=== PATIENT | female | born 1935 | race Caucasian/White ===

== ENCOUNTER 2021-10-09 13:22 | Inpatient (IN) ==
[2021-10-09] MEDS ORDERED: ACETAMINOPHEN 500 MG TABLET PO ONE (14:12)
--- NOTE | 2021-10-09 14:18 | Emergency Department Note ---
Fall HPI General Chief Complaint: Fall Stated Complaint: fall Time Seen by Provider: 10/09/21 13:44 Source: patient Mode of arrival: ambulatory History of Present Illness HPI Narrative: Patient is an 86-year-old lady who arrives emergency department by ambulance complaining of a fall. History is provided by the patient, review of her [facility] records and information provided by paramedics and her son. History is limited due to the patient's dementia. The patient was walking from her bed to a chair when her legs gave out and she fell, landing on her buttocks. She does not think she lost consciousness and does not think she struck her head. She has been ambulatory since the fall but has been having persistent pain over her tailbone and because of this [facility] staff sent her for further evaluation. She was noted to be hypoxemic upon arrival by her nurse and placed on supplemental oxygen via nasal cannula. Patient denies any shortness of breath cough or chest pain. She denies any recent fever or chills. Related Data Home Medications Medication Instructions Recorded Confirmed diltiazem HCl 360 mg capsule,24 360 mg PO QDAY 04/05/16 08/21/21 hr,extended release donepezil 5 mg tablet 5 mg PO QHS 04/05/16 08/21/21 levothyroxine 50 mcg tablet 50 mcg PO QDAY tab 04/05/16 08/21/21 (Synthroid) multivitamin,[id number]-[id number] 1 tab PO QDAY 04/06/16 08/21/21 (Complete Multivitamin) memantine 10 mg tablet (Namenda) 10 mg PO BID tab 05/02/17 08/21/21 acetaminophen 500 mg tablet 1,000 mg PO TID tab 12/31/18 08/21/21 lovastatin 40 mg tablet 20 mg PO QPM tab 09/09/19 08/21/21 loperamide 2 mg capsule 2 mg PO Q6H PRN 12/01/20 08/21/21 (Anti-Diarrheal (loperamide)) cephalexin 500 mg capsule 500 mg PO BID 07/19/21 08/21/21 Previous Rx's Medication Instructions Recorded ferrous sulfate 325 mg (65 mg 325 mg PO QDAY #30 cap 11/07/16 iron) capsule,extended release losartan 100 mg tablet 100 mg PO QDAY #90 tab 06/15/21 torsemide 20 mg tablet 40 mg PO BID #360 tab 07/19/21 Allergies Allergy/AdvReac Type Severity Reaction Status Date / Time alendronate sodium Allergy Severe Critical Verified 08/21/21 09:45 [From Fosamax] amlodipine [From Norvasc] Allergy Severe Critical Verified 08/21/21 09:45 ezetimibe [From Vytorin] Allergy Severe Critical Verified 08/21/21 09:45 fluvastatin [From Lescol] Allergy Severe Critical Verified 08/21/21 09:45 metoprolol [From Toprol XL] Allergy Severe Critical Verified 08/21/21 09:45 risedronate sodium Allergy Severe Critical Verified 08/21/21 09:45 [From Actonel] simvastatin [From Vytorin] Allergy Severe Critical Verified 08/21/21 09:45 Sulfa (Sulfonamide Allergy Severe Critical Verified 08/21/21 09:45 Antibiotics) lisinopril Allergy Intermediate Moderate Verified 08/21/21 09:45 Penicillins Allergy Mild Unknown Verified 08/21/21 09:45 Review of Systems ROS ROS Narrative: Narrative: Limitations: ROS unobtainable due to patients medical condition PFSH Narrative Patient History Narrative: Narrative: Medical/Surgical/Family History All Active Problems (Updated 10/09/21 @ 18:45 by Merlin Lara DO) Closed pelvic fracture (Acute) Acute kidney failure (Acute) 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 (Chronic) CKD (chronic kidney disease) stage 4, GFR 15-29 ml/min (Chronic) Stasis dermatitis of both legs (Chronic) Metabolic acidosis (Chronic) Localized edema due to fluid overload (Chronic) Vitamin D deficiency (Chronic) Renal artery stenosis (Chronic) Osteoarthrosis (Chronic) Deterioration in renal function (Chronic) Generalized osteoarthritis of multiple sites (Chronic) Personal history of malignant neoplasm of breast (Chronic) Chronic back pain (Chronic) Mitral regurgitation (Chronic) Impaired fasting glucose (Chronic) Encounter for long-term (current) use of other medications (Chronic) Alzheimers disease (Chronic) Hypertension (Chronic) Hyperlipidemia (Chronic) Hypothyroidism (Chronic) Osteopenia (Chronic) Medical History Alzheimers disease Chronic back pain Deterioration in renal function Encounter for long-term (current) use of other medications Generalized osteoarthritis of multiple sites Hyperlipidemia Hypertension Hypothyroidism Impaired fasting glucose Mitral regurgitation Osteoarthrosis Osteopenia Personal history of malignant neoplasm of breast Vitamin D deficiency Surgical History History of colonoscopy (06/10/08) History of hammer toe correction History of hernia repair (04/22/12) History of lumpectomy of left breast History of vein stripping Family History Mother Hypertension Sister Hypertension Social History Smoking Status: Former smoker Alcohol Intake Frequency: does not drink Substance Use: does not use Exam Narrative Narrative: I reviewed the vital signs. Gen -patient is awake and alert and in no acute distress. HEENT -head is atraumatic. There is no conjunctival pallor or scleral icterus. There is moderate midline cervical spine tenderness to palpation in the lower cervical spine without palpable bony deformity CV -S1-S2 regular rate and rhythm. Resp -breathing is nonlabored. Lungs are clear to auscultation bilaterally. There is no cyanosis. Derm -skin is warm and dry. MSK -present extremities are atraumatic. There is exquisite tenderness palpation over the central superior sacrum without palpable bony deformity. Pelvis is stable. Psych -patient has appropriate affect. Neuro -patient provides somewhat confused but contextually appropriate answers to questions. She does not know the year or her current place or situation. Patient moves all present extremities equally. Course Vital Signs Vital signs: Vital Signs Temperature 98.1 F 10/09/21 13:26 Pulse Rate 49 L 10/09/21 13:26 Respiratory Rate 16 10/09/21 13:26 Blood Pressure 124/48 10/09/21 13:26 Pulse Oximetry (%) 87 L 10/09/21 13:26 Temperature 98.1 F 10/09/21 13:26 Pulse Rate 51 L 10/09/21 18:31 Respiratory Rate 16 10/09/21 13:26 Blood Pressure 128/46 10/09/21 18:31 Pulse Oximetry (%) 96 10/09/21 18:31 [facility] MDM Narrative Medical decision making narrative: Patient presents with a fall. She is a very poor historian but did appear to exhibit some signs of increased work of breathing on arrival. During her emergency department stay, her pulse oximetry was also noted to be slightly low with values in the mid to high 80s on room air. Chest x-ray reveals pulmonary edema. Labs are remarkable for an elevated creatinine and slightly elevated potassium. BNP is elevated as well. Imaging does reveal a nondisplaced ileal fracture without any other traumatic findings. The patient was unable to ambulate due to pain on evaluation in the emergency department. Given this and her worsening kidney function I recommended she be admitted for treatment of likely decompensated heart failure and pain control for her fracture. She and her son are agreeable with the plan. Dr. Palma assumed care at the change of shift. He will follow up with the receiving facility to ensure appropriate disposition of the patient. Lab Data Lab results reviewed: Yes I reviewed the patient's lab results. Result diagrams: 10/09/21 16:50 Labs: Lab Results 10/09/21 10/09/21 10/09/21 Range/Units 16:50 16:50 16:50 WBC 10.6 (4.5-11.0) K/mcL RBC 4.45 (3.59-5.38) M/mcL Hgb 14.8 (11.2-15.7) g/dL Hct 46.0 H (34.1-44.9) % POC Hct 41 (36-48) % MCV 103.4 H (80.0-100.0) fL MCH 33.3 (26.0-34.0) pg MCHC 32.2 (31.0-36.0) g/dL RDW 13.8 (11.5-14.5) % Plt Count 212 (140-440) K/mcL MPV 10.9 H (7.4-10.4) fL Neut % (Auto) 76.2 (38.0-78.0) % Lymph % (Auto) 14.6 L (15.5-49.0) % [place] % (Auto) 8.4 (1.0-12.0) % Eos % (Auto) 0.4 (0.0-7.0) % Baso % (Auto) 0.4 (0.0-2.0) % Lymph # (Auto) 1.55 (1.50-4.80) K/mcL [place] # (Auto) 0.89 (0.10-0.90) K/mcL Eos # (Auto) 0.04 (0.00-0.70) K/mcL Baso # (Auto) 0.04 (0.00-0.30) K/mcL Absolute Neutrophils 8.08 H (1.80-8.00) K/mcL POC Sodium 140 (133-145) mEq/L POC Potassium 5.3 H (3.3-5.1) mEql/L POC Chloride 104 (96-108) mEq/L POC Total CO2 24 (22-30) mmol/L POC BUN 71 H (6-20) mg/dL POC Creatinine 3.3 H (0.6-1.2) mg/dL POC Glucose 106 H (70-105) mg/dL POC WB Ioniz Calcium 1.15 L (1.16-1.32) mmEq/L Troponin T 0.02 (<0.03) ng/mL NT-Pro-B Natriuret Pep 760.5 H (<450.0) pg/mL ED POC Tests ED POC Tests: NOREEN - Influenza A Negative NOREEN - Influenza B Negative NOREEN - SARS Antigen Negative EKG Data EKG #1: EKG attestation: Yes I reviewed and interpreted this EKG. EKG results narrative: EKG performed at 2:26 PM: Sinus rhythm, rate 44. Normal P wave and T wave morphology. There are Q waves present in the inferior leads. No ST segment deviation. Normal [place] QRS and QTc duration. There is no evidence of Brugada, Tsnhr-Xukudoaso-Tpdrm, HOCM or arrhythmogenic right ventricular dysplasia. Discharge Plan Patient/Caregiver Discharge Instructions Pt seen by ORGANIC CHEMISTRY PROFESSOR/PA only: No Clinical Impression: Closed pelvic fracture, Acute kidney failure Patient Disposition: Still a Patient Follow up with: Martina Henao ARNP [Primary Care Provider] - Prescriptions: No Action losartan 100 mg tablet 100 mg PO QDAY Qty: 90 4RF donepezil 5 mg tablet 5 mg PO QHS 0RF diltiazem HCl 360 mg capsule, extended release 360 mg PO QDAY 0RF levothyroxine [Synthroid] 50 mcg tablet 50 mcg PO QDAY 0RF Label Comments: take on an empty stomach memantine [Namenda] 10 mg tablet 10 mg PO BID 0RF lovastatin 40 mg tablet 20 mg PO QPM 0RF Label Comments: after supper multivitamin,[id number] [Complete Multivitamin] tablet 1 tab PO QDAY 0RF ferrous sulfate 325 mg (65 mg iron) capsule, extended release 325 mg PO QDAY Qty: 30 4RF acetaminophen 500 mg tablet 1,000 mg PO TID 0RF loperamide [Anti-Diarrheal (loperamide)] 2 mg capsule 2 mg PO Q6H PRN0RF cephalexin 500 mg capsule 500 mg PO BID 0RF torsemide 20 mg tablet 40 mg PO BID Qty: 360 3RF
--- NOTE | 2021-10-09 15:22 | Cat Scan Report ---
CLINICAL INFORMATION: Trauma-fall COMPARISON: None. TECHNIQUE: 2.5 mm helical slices were obtained in the skull base to vertex. Following reconstruction, axial reformatted images were reviewed at bone and parenchymal windows. The exam was performed using radiation dose optimization techniques including, but not limited to, automated exposure control, adjustment of the mA and/or kV according to patient size and use of iterative reconstruction technique. FINDINGS: The ventricles, sulci, fissures, and cisterns are symmetrically enlarged compatible with mild age-related atrophy. No extra-axial fluid collections are identified. Mild patchy chronic ischemic changes, in the deep cerebral white matter, are expected for age. Small remote cortical-based infarct in the right occipital lobe appreciated with a few remote lacunar infarcts in the basal ganglia and right thalamus. There is no hemorrhage, mass effect, or edema. Bone windows show severe left mastoiditis. IMPRESSION: Mild atrophy and moderate chronic ischemic changes in the deep cerebral white matter-expected for age. Small cortical-based infarct right occipital lobe with scattered remote lacunar infarcts in the basal ganglia and right thalamus. No intracerebral hemorrhage. Severe chronic left mastoiditis Interpreted and Authenticated by: Colton Turner 10/09/21
--- NOTE | 2021-10-09 15:25 | XRay Report ---
CLINICAL INFORMATION: Trauma-fall COMPARISON: None. TECHNIQUE: PA and Lateral views FINDINGS: The heart is mildly enlarged. Mediastinum is unremarkable. Pulmonary vessels are mildly distended and there is minimal interstitial edema. Minor bibasilar atelectasis noted. No effusions or evidence of pneumothorax. No fracture or other osseous abnormalities identified. IMPRESSION: No acute posttraumatic change. Mild CHF-consider diuretic trial Interpreted and Authenticated by: Colton Turner 10/09/21
--- NOTE | 2021-10-09 15:31 | Cat Scan Report ---
CLINICAL INFORMATION: Trauma-fall COMPARISON: None. TECHNIQUE: 0.625 mm helical slices were obtained from the skull base through the superior T2 end plate. Following reconstruction, 2.5 mm sagittal, coronal and axial reformations , with and without disc space angling, were processed. The exam was reviewed at bone and soft tissue windows. The exam was performed using radiation dose optimization techniques including, but not limited to, automated exposure control, adjustment of the mA and/or kV according to patient size and use of iterative reconstruction technique. FINDINGS: Sagittal and coronal reformatted images show the cervical spine is anatomically aligned. There is no fracture or other osseous abnormality. The cervical cord is normal in contour and caliber without focal lesion. 10 mm densely calcified nodule inferior lobe left thyroid lobe and peripherally calcified 8 mm nodule posterior left thyroid lobe appreciated. There is heavy calcific plaque in the right carotid bifurcation and moderate calcific plaque in the left carotid bifurcation. Severe centrilobular emphysema noted. At C2-3, minimal posterior marginal spurring at slightly effaces the thecal sac At C3-4, right uncovertebral spur results in mild right lateral recess narrowing. At C4-5, moderate broad disc spur complex results in mild central canal and mild left IV foraminal narrowing At C5-6, moderate broad disc spur complex results in moderate central canal and moderate bilateral IV foraminal narrowing. The C6-7 and C7-T1 disc levels are normal. IMPRESSION: 1. No fracture or other post traumatic change 2. Multilevel degeneration. 3. Severe centrilobular emphysema. 4. Heavily calcific plaque right carotid bifurcation. Moderate calcific plaque left carotid bifurcation. Suggest carotid Doppler Interpreted and Authenticated by: Colton Turner 10/09/21
--- NOTE | 2021-10-09 15:54 | Cat Scan Report ---
CLINICAL INFORMATION: Trauma COMPARISON: None. TECHNIQUE: 0.625 mm helical slices were obtained from the mid L4 through the subtrochanteric regions. Following reconstruction, 2.5 mm sagittal, coronal and axial reformations were processed. The exam was reviewed in bone and soft tissue windows. The exam was performed using radiation dose optimization techniques including, but not limited to, automated exposure control, adjustment of mA and/or kV according to patient size and use of iterative reconstruction technique. FINDINGS: A mildly comminuted, oblique fracture through the posterior left ilium is only minimally displaced. It communicates with articular surface of the left SI joint which maintained congruency. No other acute fractures identified. Malunified old fracture of the left superior and inferior pubic rami appreciated. There is mild degenerative change both SI and hip joints.At L3-4 moderate broad disc protrusion facet arthropathy result in moderate central canal bilateral lateral recess and mild left IV foraminal narrowing. At L5-S1 broad disc spur complex results in mild bilateral IV foraminal narrowing. Soft tissues show the urinary bladder is normal. Anteflexed normal appearing postmenopausal uterus m 6 cm. Region of both ovaries are normal. The visualized small and large bowel show only scattered sigmoid diverticuli. There is no free air, free fluid and no adenopathy. A small foraminal herniation of the mesenteric fat appreciated. IMPRESSION: 1. Acute oblique, comminuted, minimally displaced fracture of the posterior left ilium. 2. Sigmoid diverticulosis. 3. Small periumbilical hernia containing only mesenteric fat. 4. Degenerative change Interpreted and Authenticated by: Colton Turner 10/09/21
[2021-10-09] MEDS ORDERED: morphine 4 MG/ML VIAL IV ONE (16:40)
--- NOTE | 2021-10-09 16:42 | EKG ---
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 Measurements Intervals [place] Rate: 44 P: 6 NM: 196 QRS: -40 QRSD: 110 T: -59 QT: 472 QTc: 404 Interpretive Statements Sinus bradycardia, rate 44 bpm Abnormal R-wave progression, consider old posterior [place] Inferior infarct, age indeterminate Electronically Signed On 10-09-2021 16:42:10 PST by Colton Dos Santos M.D. [place] [place][id number]
[2021-10-09 17:03] LABS: POC Blood Urea Nitrogen 71 mg/dL (6-20); POC CO2 24 mmol/L (22-30); POC Calcium, Ionized 1.15 mmEq/L (1.16-1.32); POC Chloride 104 mEq/L (96-108); POC Creatinine 3.3 mg/dL (0.6-1.2); POC Glucose, Random 106 mg/dL (70-105); POC Hematocrit 41 % (36-48); POC Potassium 5.3 mEql/L (3.3-5.1); POC Sodium 140 mEq/L (133-145)
[2021-10-09 17:32] LABS: Basophils # (Auto) 0.04 K/mcL (0.00-0.30); Basophils % (Auto) 0.4 % (0.0-2.0); Eosinophils # (Auto) 0.04 K/mcL (0.00-0.70); Eosinophils % (Auto) 0.4 % (0.0-7.0); Hemoglobin 14.8 g/dL (11.2-15.7); Lymphocytes # (Auto) 1.55 K/mcL (1.50-4.80); Lymphocytes % (Auto) 14.6 % (15.5-49.0); Mean Cell Volume 103.4 fL (80.0-100.0); Mean Corpuscular HGB Conc 32.2 g/dL (31.0-36.0); Mean Platelet Volume 10.9 fL (7.4-10.4); Monocytes # (Auto) 0.89 K/mcL (0.10-0.90); Monocytes % (Auto) 8.4 % (1.0-12.0); Neutrophils % (Auto) 76.2 % (38.0-78.0); Platelet Count 212 K/mcL (140-440); RBC 4.45 M/mcL (3.59-5.38); Red Cell Distribution Width 13.8 % (11.5-14.5); WBC 10.6 K/mcL (4.5-11.0)
[2021-10-09 17:56] LABS: proBNP 760.5 pg/mL (<450.0)
[2021-10-09] MEDS ORDERED: FUROSEMIDE 100 MG/10 ML VIAL IV ONE (18:20)
--- NOTE | 2021-10-10 06:35 | Emergency Department Note ---
HPI General Chief complaint: Fall Stated complaint: fall Time Seen by Provider: 10/09/21 13:44 Source: patient Mode of arrival: ambulatory Limitations: no limitations History of Present Illness HPI Narrative: Narrative: This patient was signed out to me by Dr Lara at shift change yesterday. For full details please see his H&P. In brief she was found to have a fracture of the left ileum and CHF. Plan was for either admission or transfer, depending on bed availability. Unfortunately neither has been possible. There are no beds in the hospital here and we have been unable to secure an accepting hospital for her. Her case has been taken up by the [place] transfer center, and they may have located a bed in [place], [place]. They will call back at 7AM with further details. In the meantime I ordered a repeat BMP which may assist with her disposition. Related Data Home Medications Medication Instructions Recorded Confirmed diltiazem HCl 360 mg capsule,24 360 mg PO QDAY 04/05/16 08/21/21 hr,extended release donepezil 5 mg tablet 5 mg PO QHS 04/05/16 08/21/21 levothyroxine 50 mcg tablet 50 mcg PO QDAY tab 04/05/16 08/21/21 (Synthroid) multivitamin,[id number]-[id number] 1 tab PO QDAY 04/06/16 08/21/21 (Complete Multivitamin) memantine 10 mg tablet (Namenda) 10 mg PO BID tab 05/02/17 08/21/21 acetaminophen 500 mg tablet 1,000 mg PO TID tab 12/31/18 08/21/21 lovastatin 40 mg tablet 20 mg PO QPM tab 09/09/19 08/21/21 loperamide 2 mg capsule 2 mg PO Q6H PRN 12/01/20 08/21/21 (Anti-Diarrheal (loperamide)) cephalexin 500 mg capsule 500 mg PO BID 07/19/21 08/21/21 Previous Rx's Medication Instructions Recorded ferrous sulfate 325 mg (65 mg 325 mg PO QDAY #30 cap 11/07/16 iron) capsule,extended release losartan 100 mg tablet 100 mg PO QDAY #90 tab 03/28/21 torsemide 20 mg tablet 40 mg PO BID #360 tab 07/19/21 Allergies Allergy/AdvReac Type Severity Reaction Status Date / Time alendronate sodium Allergy Severe Critical Verified 08/21/21 09:45 [From Fosamax] amlodipine [From Norvasc] Allergy Severe Critical Verified 08/21/21 09:45 ezetimibe [From Vytorin] Allergy Severe Critical Verified 08/21/21 09:45 fluvastatin [From Lescol] Allergy Severe Critical Verified 08/21/21 09:45 metoprolol [From Toprol XL] Allergy Severe Critical Verified 08/21/21 09:45 risedronate sodium Allergy Severe Critical Verified 08/21/21 09:45 [From Actonel] simvastatin [From Vytorin] Allergy Severe Critical Verified 08/21/21 09:45 Sulfa (Sulfonamide Allergy Severe Critical Verified 08/21/21 09:45 Antibiotics) lisinopril Allergy Intermediate Moderate Verified 08/21/21 09:45 Penicillins Allergy Mild Unknown Verified 08/21/21 09:45 Review of Systems ROS ROS Narrative: Narrative: PFSH Narrative Patient History Narrative: Narrative: Medical/Surgical/Family History All Active Problems (Updated 10/09/21 @ 18:45 by Merlin Lara DO) Closed pelvic fracture (Acute) Acute kidney failure (Acute) 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 (Chronic) CKD (chronic kidney disease) stage 4, GFR 15-29 ml/min (Chronic) Stasis dermatitis of both legs (Chronic) Metabolic acidosis (Chronic) Localized edema due to fluid overload (Chronic) Vitamin D deficiency (Chronic) Renal artery stenosis (Chronic) Osteoarthrosis (Chronic) Deterioration in renal function (Chronic) Generalized osteoarthritis of multiple sites (Chronic) Personal history of malignant neoplasm of breast (Chronic) Chronic back pain (Chronic) Mitral regurgitation (Chronic) Impaired fasting glucose (Chronic) Encounter for long-term (current) use of other medications (Chronic) Alzheimers disease (Chronic) Hypertension (Chronic) Hyperlipidemia (Chronic) Hypothyroidism (Chronic) Osteopenia (Chronic) Medical History Alzheimers disease Chronic back pain Deterioration in renal function Encounter for long-term (current) use of other medications Generalized osteoarthritis of multiple sites Hyperlipidemia Hypertension Hypothyroidism Impaired fasting glucose Mitral regurgitation Osteoarthrosis Osteopenia Personal history of malignant neoplasm of breast Vitamin D deficiency Surgical History History of colonoscopy (06/10/08) History of hammer toe correction History of hernia repair (04/22/12) History of lumpectomy of left breast History of vein stripping Family History Mother Hypertension Sister Hypertension Social History Smoking Status: Former smoker Alcohol Intake Frequency: does not drink Substance Use: does not use Exam Narrative Narrative: Narrative: General Limitations: no limitations Course Vital Signs Vital signs: Vital Signs Temperature 98.1 F 10/09/21 13:26 Pulse Rate 49 L 10/09/21 13:26 Respiratory Rate 16 10/09/21 13:26 Blood Pressure 124/48 10/09/21 13:26 Pulse Oximetry (%) 87 L 10/09/21 13:26 Temperature 98.1 F 10/09/21 13:26 Pulse Rate 69 10/10/21 06:16 Respiratory Rate 16 10/09/21 13:26 Blood Pressure 116/94 10/10/21 06:16 Pulse Oximetry (%) 96 10/10/21 06:16 MDM MDM Narrative Medical decision making narrative: Narrative: Lab Data Result diagrams: 10/09/21 16:50 10/10/21 06:20 Labs: Lab Results 10/09/21 10/09/21 10/09/21 Range/Units 16:50 16:50 16:50 WBC 10.6 (4.5-11.0) K/mcL RBC 4.45 (3.59-5.38) M/mcL Hgb 14.8 (11.2-15.7) g/dL Hct 46.0 H (34.1-44.9) % POC Hct 41 (36-48) % MCV 103.4 H (80.0-100.0) fL MCH 33.3 (26.0-34.0) pg MCHC 32.2 (31.0-36.0) g/dL RDW 13.8 (11.5-14.5) % Plt Count 212 (140-440) K/mcL MPV 10.9 H (7.4-10.4) fL Neut % (Auto) 76.2 (38.0-78.0) % Lymph % (Auto) 14.6 L (15.5-49.0) % [place] % (Auto) 8.4 (1.0-12.0) % Eos % (Auto) 0.4 (0.0-7.0) % Baso % (Auto) 0.4 (0.0-2.0) % Lymph # (Auto) 1.55 (1.50-4.80) K/mcL [place] # (Auto) 0.89 (0.10-0.90) K/mcL Eos # (Auto) 0.04 (0.00-0.70) K/mcL Baso # (Auto) 0.04 (0.00-0.30) K/mcL Absolute Neutrophils 8.08 H (1.80-8.00) K/mcL POC Sodium 140 (133-145) mEq/L POC Potassium 5.3 H (3.3-5.1) mEql/L POC Chloride 104 (96-108) mEq/L POC Total CO2 24 (22-30) mmol/L POC BUN 71 H (6-20) mg/dL POC Creatinine 3.3 H (0.6-1.2) mg/dL POC Glucose 106 H (70-105) mg/dL POC WB Ioniz Calcium 1.15 L (1.16-1.32) mmEq/L Troponin T 0.02 (<0.03) ng/mL NT-Pro-B Natriuret Pep 760.5 H (<450.0) pg/mL ED POC Tests ED POC Tests: NOREEN - Influenza A Negative NOREEN - Influenza B Negative NOREEN - SARS Antigen Negative Discharge Plan Patient/Caregiver Discharge Instructions Pt seen by FINISH MENDER/PA only: No Clinical Impression: Closed pelvic fracture, Acute kidney failure Patient Disposition: Still a Patient Condition: Good Follow up with: Martina Henao ARNP [Primary Care Provider] - Prescriptions: No Action losartan 100 mg tablet 100 mg PO QDAY Qty: 90 4RF donepezil 5 mg tablet 5 mg PO QHS 0RF diltiazem HCl 360 mg capsule, extended release 360 mg PO QDAY 0RF levothyroxine [Synthroid] 50 mcg tablet 50 mcg PO QDAY 0RF Label Comments: take on an empty stomach memantine [Namenda] 10 mg tablet 10 mg PO BID 0RF lovastatin 40 mg tablet 20 mg PO QPM 0RF Label Comments: after supper multivitamin,[id number] [Complete Multivitamin] tablet 1 tab PO QDAY 0RF ferrous sulfate 325 mg (65 mg iron) capsule, extended release 325 mg PO QDAY Qty: 30 4RF acetaminophen 500 mg tablet 1,000 mg PO TID 0RF loperamide [Anti-Diarrheal (loperamide)] 2 mg capsule 2 mg PO Q6H PRN0RF cephalexin 500 mg capsule 500 mg PO BID 0RF torsemide 20 mg tablet 40 mg PO BID Qty: 360 3RF
[2021-10-10 07:51] LABS: Blood Urea Nitrogen 64 mg/dL (8-23); Calcium 8.8 mg/dL (8.6-10.4); Carbon Dioxide 23 mmol/L (22-30); Chloride 102 mmol/L (96-108); Glomerular Filtration Rate 19; Glucose 105 mg/dL (70-105)
--- NOTE | 2021-10-10 08:07 | Emergency Department Note ---
Course Reevaluation(s) Reevaluation #1: I assumed care from Dr. Palma at the change of shift. I evaluated the patient in person at 8 AM. She is resting comfortably and awakens to verbal stimuli. Oxygen saturation is 96% on room air. She says that she does not feel well but cannot further explain what is causing her discomfort. Renal function is improved on this morning's labs. We will continue to diurese and search for inpatient placement Time: 08:06 Time: 14:55 Reevaluation #3: The bed did become available at our hospital. I discussed the patient's history examination diagnostic findings with Dr. Mcdaniels who accepts admission. I discussed the plan with the patient and her son and they are agreeable. Vital Signs Vital signs: Vital Signs Temperature 98.1 F 10/09/21 13:26 Pulse Rate 49 L 10/09/21 13:26 Respiratory Rate 16 10/09/21 13:26 Blood Pressure 124/48 10/09/21 13:26 Pulse Oximetry (%) 87 L 10/09/21 13:26 Temperature 98.1 F 10/09/21 13:26 Pulse Rate 102 H 10/10/21 13:58 Respiratory Rate 16 10/09/21 13:26 Blood Pressure 112/53 10/10/21 13:31 Pulse Oximetry (%) 93 10/10/21 13:58 MDM MDM Narrative Medical decision making narrative: Narrative: Lab Data Result diagrams: 10/09/21 16:50 10/10/21 06:20 Labs: Lab Results 10/09/21 10/09/21 10/09/21 Range/Units 16:50 16:50 16:50 WBC 10.6 (4.5-11.0) K/mcL RBC 4.45 (3.59-5.38) M/mcL Hgb 14.8 (11.2-15.7) g/dL Hct 46.0 H (34.1-44.9) % POC Hct 41 (36-48) % MCV 103.4 H (80.0-100.0) fL MCH 33.3 (26.0-34.0) pg MCHC 32.2 (31.0-36.0) g/dL RDW 13.8 (11.5-14.5) % Plt Count 212 (140-440) K/mcL MPV 10.9 H (7.4-10.4) fL Neut % (Auto) 76.2 (38.0-78.0) % Lymph % (Auto) 14.6 L (15.5-49.0) % [place] % (Auto) 8.4 (1.0-12.0) % Eos % (Auto) 0.4 (0.0-7.0) % Baso % (Auto) 0.4 (0.0-2.0) % Lymph # (Auto) 1.55 (1.50-4.80) K/mcL [place] # (Auto) 0.89 (0.10-0.90) K/mcL Eos # (Auto) 0.04 (0.00-0.70) K/mcL Baso # (Auto) 0.04 (0.00-0.30) K/mcL Absolute Neutrophils 8.08 H (1.80-8.00) K/mcL POC Sodium 140 (133-145) mEq/L Sodium (133-145) mmol/L POC Potassium 5.3 H (3.3-5.1) mEql/L Potassium (3.3-5.1) mmol/L POC Chloride 104 (96-108) mEq/L Chloride (96-108) mmol/L Carbon Dioxide (22-30) mmol/L POC Total CO2 24 (22-30) mmol/L Anion Gap (8.0-16.0) POC BUN 71 H (6-20) mg/dL BUN (8-23) mg/dL Creatinine (0.6-1.1) mg/dL POC Creatinine 3.3 H (0.6-1.2) mg/dL GFR Calculation Glucose (70-105) mg/dL POC Glucose 106 H (70-105) mg/dL Calcium (8.6-10.4) mg/dL POC WB Ioniz Calcium 1.15 L (1.16-1.32) mmEq/L Troponin T 0.02 (<0.03) ng/mL NT-Pro-B Natriuret Pep 760.5 H (<450.0) pg/mL 10/10/21 Range/Units 06:20 WBC (4.5-11.0) K/mcL RBC (3.59-5.38) M/mcL Hgb (11.2-15.7) g/dL Hct (34.1-44.9) % POC Hct (36-48) % MCV (80.0-100.0) fL MCH (26.0-34.0) pg MCHC (31.0-36.0) g/dL RDW (11.5-14.5) % Plt Count (140-440) K/mcL MPV (7.4-10.4) fL Neut % (Auto) (38.0-78.0) % Lymph % (Auto) (15.5-49.0) % [place] % (Auto) (1.0-12.0) % Eos % (Auto) (0.0-7.0) % Baso % (Auto) (0.0-2.0) % Lymph # (Auto) (1.50-4.80) K/mcL [place] # (Auto) (0.10-0.90) K/mcL Eos # (Auto) (0.00-0.70) K/mcL Baso # (Auto) (0.00-0.30) K/mcL Absolute Neutrophils (1.80-8.00) K/mcL POC Sodium (133-145) mEq/L Sodium 141 (133-145) mmol/L POC Potassium (3.3-5.1) mEql/L Potassium 4.6 (3.3-5.1) mmol/L POC Chloride (96-108) mEq/L Chloride 102 (96-108) mmol/L Carbon Dioxide 23 (22-30) mmol/L POC Total CO2 (22-30) mmol/L Anion Gap 16.0 (8.0-16.0) POC BUN (6-20) mg/dL BUN 64 H (8-23) mg/dL Creatinine 2.2 H (0.6-1.1) mg/dL POC Creatinine (0.6-1.2) mg/dL GFR Calculation 19 Glucose 105 (70-105) mg/dL POC Glucose (70-105) mg/dL Calcium 8.8 (8.6-10.4) mg/dL POC WB Ioniz Calcium (1.16-1.32) mmEq/L Troponin T (<0.03) ng/mL NT-Pro-B Natriuret Pep (<450.0) pg/mL ED POC Tests ED POC Tests: NOREEN - Influenza A Negative NOREEN - Influenza B Negative NOREEN - SARS Antigen Negative Discharge Plan Patient/Caregiver Discharge Instructions Pt seen by COLOR[facility] DYER/PA only: No Clinical Impression: Closed pelvic fracture, Acute kidney failure Patient Disposition: Xfer As Inpt ([facility]) Condition: Good Follow up with: Martina Henao ARNP [Primary Care Provider] - Prescriptions: No Action losartan 100 mg tablet 100 mg PO QDAY Qty: 90 4RF donepezil 5 mg tablet 5 mg PO QHS 0RF diltiazem HCl 360 mg capsule, extended release 360 mg PO QDAY 0RF levothyroxine [Synthroid] 50 mcg tablet 50 mcg PO QDAY 0RF Label Comments: take on an empty stomach memantine [Namenda] 10 mg tablet 10 mg PO BID 0RF lovastatin 40 mg tablet 20 mg PO QPM 0RF Label Comments: after supper multivitamin,[id number] [Complete Multivitamin] tablet 1 tab PO QDAY 0RF ferrous sulfate 325 mg (65 mg iron) capsule, extended release 325 mg PO QDAY Qty: 30 4RF acetaminophen 500 mg tablet 1,000 mg PO TID 0RF loperamide [Anti-Diarrheal (loperamide)] 2 mg capsule 2 mg PO Q6H PRN (Reason: Diarrhea) 0RF torsemide 20 mg tablet 40 mg PO BID Qty: 360 3RF ciprofloxacin HCl 500 mg Tablet 500 mg PO BID 0RF tramadol 50 mg Tablet 50 mg PO Q6H PRN (Reason: Pain) 0RF triamcinolone acetonide 0.1 % Cream 1 applic TOPICAL BID 0RF Rx Instructions: apply to legs topically twice a day gabapentin 100 mg Capsule 100 mg PO BID 0RF
[2021-10-10] MEDS ORDERED: LOPERAMIDE 2 MG CAPSULE PO PRN (09:45)
[2021-10-10] MEDS ORDERED: traMADol (PP) 50 MG TABLET (#4) PO PRN (09:45)
[2021-10-10] MEDS ORDERED: FUROSEMIDE 40 MG/4 ML VIAL IV SCH (14:00)
[2021-10-10] MEDS ORDERED: FUROSEMIDE 40 MG TABLET PO SCH (15:00)
--- NOTE | 2021-10-10 15:18 | Internal Med History&Physical ---
HPI History of Present Illness Patient information: Note initiated : 10/10/21 at 3:06 pm Service Date, if different from initiated Date: [] Patient: Yamileth Roach 86 y/o F admitted on for fall. Chief Complaint: [] Chief complaint: fall History of present illness: Ms. Roach is a 86 year old F history of Alzheimer's Dementia, essential HTN, mixed dyslipidemia, CKD IV, hypothyroidism, p/w fall. She is a assisted living f rust/memory care facility resident. Yesterday when she was trying to get up from bed she fell onto the ground. She denies any chest pain or palpitation. She denies any headache. She denies any LOC. She was sent to our ER by EMS on 10/08 for further evaluation. She is c/o aching pain of her left hip, 5/10, non radiating, constant at rest, and 10/10 when she tries to move her left leg. She was also being placed on 4L/min supplemental oxygen initially, currently at 2L/min. Labs significant for elevated serum Cr level initially at 3.3 with a baseline of 1.5. BNP 760. CXR showing signs of mild CHF. Head CT w/o contrast no signs of acute intracranial pathologies. CT pelvis showing acute oblique, comminuted, minimally displaced fracture of the posterior left ilium. Constitutional Constitutional: Absent chills, excessive sweating, fatigue, fever(s) or weakness EENT Eyes: Absent blurry vision, change in vision, loss of vision or other visual disturbances Ears: Absent decreased hearing or tinnitus Nose, mouth and throat: Absent abnormal hearing, dry mouth, headache(s), nasal congestion or sore throat Cardiovascular Cardiovascular: Absent chest pain, chest pain at rest, edema, irregular heart rhythm or palpatations Respiratory Respiratory: Absent cough, dyspnea or wheezing Gastrointestinal Gastrointestinal: Absent abdominal pain, constipation, diarrhea, nausea or vomiting Musculoskeletal Musculoskeletal: Absent back pain, deformity, limited range of motion, muscle cramps, muscle weakness or numbness Additional comments: left hip pain Integumentary Integumentary: Absent lesions, rash or wounds Neurological Neurological: Absent focal weakness, headache(s) or numbness Psychiatric Psychiatric: Absent anxiety, depression or hallucinations PFSH PFSH All Active Problems (Updated 10/10/21 @ 15:14 by Kevin Mcdaniels MD) CHF (congestive heart failure), NYHA class III (Acute) Alzheimer's dementia (Acute) Stage 2 acute kidney injury (Acute) Closed pelvic fracture (Acute) Acute kidney failure (Acute) 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 (Chronic) CKD (chronic kidney disease) stage 4, GFR 15-29 ml/min (Chronic) Stasis dermatitis of both legs (Chronic) Metabolic acidosis (Chronic) Localized edema due to fluid overload (Chronic) Vitamin D deficiency (Chronic) Renal artery stenosis (Chronic) Osteoarthrosis (Chronic) Deterioration in renal function (Chronic) Generalized osteoarthritis of multiple sites (Chronic) Personal history of malignant neoplasm of breast (Chronic) Chronic back pain (Chronic) Mitral regurgitation (Chronic) Impaired fasting glucose (Chronic) Encounter for long-term (current) use of other medications (Chronic) Alzheimers disease (Chronic) Hypertension (Chronic) Hyperlipidemia (Chronic) Hypothyroidism (Chronic) Osteopenia (Chronic) Medical History Alzheimers disease Chronic back pain Deterioration in renal function Encounter for long-term (current) use of other medications Generalized osteoarthritis of multiple sites Hyperlipidemia Hypertension Hypothyroidism Impaired fasting glucose Mitral regurgitation Osteoarthrosis Osteopenia Personal history of malignant neoplasm of breast Vitamin D deficiency Surgical History History of colonoscopy (06/10/08) History of hammer toe correction History of hernia repair (04/22/12) History of lumpectomy of left breast History of vein stripping Family History Mother Hypertension Sister Hypertension Social History marital status: frequency: 5-6 times per week alcohol intake frequency: does not drink substance use type: does not use MEDS/ALLERGIES Home Medications and Allergies Home Medications Medication Instructions Recorded Confirmed Type diltiazem HCl 360 mg capsule,24 360 mg PO QDAY 04/05/16 10/10/21 History hr,extended release donepezil 5 mg tablet 5 mg PO QHS 04/05/16 10/10/21 History levothyroxine 50 mcg tablet 50 mcg PO QDAY tab 04/05/16 10/10/21 History (Synthroid) multivitamin,[id number] 1 tab PO QDAY 04/06/16 10/10/21 History (Complete Multivitamin) ferrous sulfate 325 mg (65 mg 325 mg PO QDAY #30 cap 11/07/16 10/10/21 Rx iron) capsule,extended release memantine 10 mg tablet (Namenda) 10 mg PO BID tab 05/02/17 10/10/21 History acetaminophen 500 mg tablet 1,000 mg PO TID tab 12/31/18 10/10/21 History lovastatin 40 mg tablet 20 mg PO QPM tab 09/09/19 10/10/21 History loperamide 2 mg capsule 2 mg PO Q6H PRN 12/01/20 10/10/21 History (Anti-Diarrheal (loperamide)) losartan 100 mg tablet 100 mg PO QDAY #90 tab 03/28/21 10/10/21 Rx torsemide 20 mg tablet 40 mg PO BID #360 tab 07/19/21 10/10/21 Rx ciprofloxacin HCl 500 mg tablet 500 mg PO BID 10/10/21 10/10/21 History gabapentin 100 mg capsule 100 mg PO BID 10/10/21 10/10/21 History tramadol 50 mg tablet 50 mg PO Q6H PRN 10/10/21 10/10/21 History triamcinolone acetonide 0.1 % 1 applic TOPICAL BID 10/10/21 10/10/21 History topical cream Allergies Allergy/AdvReac Type Severity Reaction Status Date / Time alendronate sodium Allergy Severe Critical Verified 08/21/21 09:45 [From Fosamax] amlodipine [From Norvasc] Allergy Severe Critical Verified 08/21/21 09:45 ezetimibe [From Vytorin] Allergy Severe Critical Verified 08/21/21 09:45 fluvastatin [From Lescol] Allergy Severe Critical Verified 08/21/21 09:45 metoprolol [From Toprol XL] Allergy Severe Critical Verified 08/21/21 09:45 risedronate sodium Allergy Severe Critical Verified 08/21/21 09:45 [From Actonel] simvastatin [From Vytorin] Allergy Severe Critical Verified 08/21/21 09:45 Sulfa (Sulfonamide Allergy Severe Critical Verified 08/21/21 09:45 Antibiotics) lisinopril Allergy Intermediate Moderate Verified 08/21/21 09:45 Penicillins Allergy Mild Unknown Verified 08/21/21 09:45 EXAM Constitutional Vitals: Temp Pulse Resp BP Pulse Ox 36.7 C 102 H 16 112/53 93 10/09/21 13:26 10/10/21 13:58 10/09/21 13:26 10/10/21 13:31 10/10/21 13:58 General appearance: cooperative, disheveled and no acute distress Head Head exam: Present atraumatic and normocephalic Eye Eye exam: Present EOMI and PERRL ENT ENT exam: Present mucous membranes moist, normal exam and normal external ear exam Additional comments: Nasal cannula in place Neck Neck exam: Present normal inspection; Absent lymphadenopathy, tenderness or thyromegaly Respiratory Respiratory exam: Present decreased breath sounds; Absent accessory muscle use, respiratory distress or wheezes Cardiovascular Cardiovascular exam: Present normal rate and rhythm; Absent JVD GI/Abdominal GI/Abdominal exam: Present normal bowel sounds and soft; Absent organomegaly or tenderness Extremities Exam Extremities exam: Present normal capillary refill, normal inspection and tende rness; Absent full ROM Additional comments: left lateral hip tenderness to palpation Neurological Exam Neurological exam: Present alert, CN II-XII intact and oriented X3; Absent motor sensory deficit Psychiatric Psychiatric exam: Present normal affect and normal mood; Absent anxious or depressed Skin Skin exam: Present dry and intact DATA Data Completed and Pending Labs: Labs from last 24 hours 10/10/21 10/09/21 10/09/21 06:20 16:50 16:50 WBC RBC Hgb Hct POC Hct 41 MCV MCH MCHC RDW Plt Count MPV Neut % (Auto) Lymph % (Auto) [place] % (Auto) Eos % (Auto) Baso % (Auto) Lymph # (Auto) [place] # (Auto) Eos # (Auto) Baso # (Auto) Absolute Neutrophils POC Sodium 140 Sodium 141 POC Potassium 5.3 H Potassium 4.6 POC Chloride 104 Chloride 102 Carbon Dioxide 23 POC Total CO2 24 Anion Gap 16.0 POC BUN 71 H BUN 64 H Creatinine 2.2 H POC Creatinine 3.3 H GFR Calculation 19 Glucose 105 POC Glucose 106 H Calcium 8.8 POC WB Ioniz Calcium 1.15 L Troponin T 0.02 NT-Pro-B Natriuret Pep 760.5 H 10/09/21 16:50 WBC 10.6 RBC 4.45 Hgb 14.8 Hct 46.0 H POC Hct MCV 103.4 H MCH 33.3 MCHC 32.2 RDW 13.8 Plt Count 212 MPV 10.9 H Neut % (Auto) 76.2 Lymph % (Auto) 14.6 L [place] % (Auto) 8.4 Eos % (Auto) 0.4 Baso % (Auto) 0.4 Lymph # (Auto) 1.55 [place] # (Auto) 0.89 Eos # (Auto) 0.04 Baso # (Auto) 0.04 Absolute Neutrophils 8.08 H POC Sodium Sodium POC Potassium Potassium POC Chloride Chloride Carbon Dioxide POC Total CO2 Anion Gap POC BUN BUN Creatinine POC Creatinine GFR Calculation Glucose POC Glucose Calcium POC WB Ioniz Calcium Troponin T NT-Pro-B Natriuret Pep A/P Assessment and plan (1) Closed pelvic fracture: Status: Acute (2) Stage 2 acute kidney injury: Status: Acute (3) CKD (chronic kidney disease) stage 4, GFR 15-29 ml/min: Status: Chronic (4) 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: Status: Chronic (5) Hyperlipidemia: Status: Chronic (6) Hypothyroidism: Status: Chronic (7) Alzheimer's dementia: Status: Acute (8) CHF (congestive heart failure), NYHA class III: Status: Acute Narrative A/P Narrative: Assessment and Plans: 1. Closed, minimally displaced, left posterior ilial fracture: Inpatient med surg Tramadol PRN mild pain Oxycodone PRN moderate pain Morphine IV PRN severe pain Bedrest Physical therapy Occupational therapy project management manager consult for placement planning 2. CHF: Not previously diagnosed Intake and output Daily weigh 2L/day fluid restriction Supplemental oxygen therapy titrate to achieve spo2>=92% s/p IV Lasix given in the ED Coreg Hold Losartan for now given PATT Torsemide 3. Stage 2 acute kidney injury in the context of CKD IV: Avoid nephrotoxic agents Hold Losartan for now given PATT Saline lock CMP in the morning to trend kidney functions 4. Essential HTN: Diltiazem Coreg Hold Losartan for now given PATT Torsemide Hydralazine IV PRN SBP>=180 and/or DBP>=110mmHg 5. Mixed dyslipidemia: Continue statin therapy 6. Alzheimer's Dementia: Donepezil Memantine 7. Hypothyroidism: Continue thyroid replacement therapy GI ppx: not currently indicated DVT ppx: Heparin Code status: Full Prognosis: guarded Disposition: inpatient med sug telemetry Time Spent With Patient Time: Total time spent is greater than 50% in coordination of care (as documented) at patient's floor/unit and/or counseling patient: Total time spent with greater than 50% in coordination of care (as documented) at patient's floor/unit and/or counseling patient:: Greater than 35 minutes
[2021-10-10] MEDS: ACETAMINOPHEN 500 MG TABLET PO SCH ×2 (16:03→20:49)
[2021-10-10] MEDS ORDERED: traZODone HCL 50 MG TABLET PO PRN (16:49)
[2021-10-10] MEDS ORDERED: hydrALAZINE 20 MG/ML VIAL IV PRN (16:49)
[2021-10-10] MEDS ORDERED: ACETAMINOPHEN 325 MG TABLET PO PRN (16:49)
[2021-10-10] MEDS ORDERED: ONDANSETRON 4 MG/2 ML VIAL IV PRN (16:49)
[2021-10-10] MEDS: CARVEDILOL 3.125 MG TABLET PO SCH (17:55)
[2021-10-10] MEDS: GABAPENTIN 100 MG CAPSULE PO SCH (20:48)
[2021-10-10] MEDS: HEPARIN 5,000 UNIT/ML VIAL SQ SCH (20:48)
[2021-10-10] MEDS: MEMANTINE 10 MG TABLET PO SCH (20:48)
[2021-10-10] MEDS: TORSEMIDE 10 MG TABLET PO SCH (20:49)
[2021-10-10] MEDS: SENNOSIDES 1 TABLET PO SCH (20:49)
[2021-10-10] MEDS: DOCUSATE SODIUM 100 MG CAPSULE PO SCH (20:49)
[2021-10-10] MEDS: 0.9 % SODIUM CHLORIDE 10 ML SYRINGE IV SCH (20:50)
[2021-10-10] MEDS: TRIAMCINOLONE CREAM 0.1% 15G 1 DOSE TUBE TOPICAL SCH (20:50)
[2021-10-10] MEDS ORDERED: LOVASTATIN 40 MG PO SCH (21:00)
[2021-10-10] MEDS: DONEPEZIL 5 MG TABLET PO SCH (22:00)
[2021-10-11] MEDS: morphine 4 MG/ML VIAL IV PRN (02:45)
[2021-10-11] MEDS: 0.9 % SODIUM CHLORIDE 10 ML SYRINGE IV SCH ×3 (05:40→21:41)
[2021-10-11] MEDS ORDERED: traMADol 50 MG TABLET PO PRN (07:30)
[2021-10-11 08:05] LABS: ALT/SGPT 17 U/L (<40); AST/SGOT 21 U/L (<32); Albumin 3.5 gm/dL (3.2-5.2); Albumin/Globulin Ratio 0.8 (1.0-2.3); Alkaline Phosphatase 83 U/L (39-117); Bilirubin,Total 0.4 mg/dL (0.1-1.0); Blood Urea Nitrogen 57 mg/dL (8-23); Calcium 9.3 mg/dL (8.6-10.4); Carbon Dioxide 24 mmol/L (22-30); Chloride 104 mmol/L (96-108); Globulin 4.2 gm/dL (2.2-3.7); Glomerular Filtration Rate 31; Glucose 108 mg/dL (70-105); Phosphorous 3.9 mg/dL (2.5-4.5)
[2021-10-11] MEDS: ACETAMINOPHEN 500 MG TABLET PO SCH ×3 (08:21→21:35)
[2021-10-11] MEDS: TORSEMIDE 10 MG TABLET PO SCH ×2 (08:21→21:35)
[2021-10-11] MEDS: CARVEDILOL 3.125 MG TABLET PO SCH (08:22)
[2021-10-11] MEDS: LEVOTHYROXINE 50 MCG TABLET PO SCH (08:22)
[2021-10-11] MEDS: GABAPENTIN 100 MG CAPSULE PO SCH ×2 (08:22→21:40)
[2021-10-11] MEDS: MEMANTINE 10 MG TABLET PO SCH ×2 (08:22→21:36)
[2021-10-11] MEDS: MULTIVIT,THER IRON,CA,FA & MIN 1 TABLET PO SCH (08:22)
[2021-10-11] MEDS: DOCUSATE SODIUM 100 MG CAPSULE PO SCH ×2 (08:22→21:02)
[2021-10-11] MEDS: DILTIAZEM 180 MG CAP.XL.24H PO SCH (08:22)
[2021-10-11] MEDS: FERROUS SULFATE 325 MG TABLET PO SCH (08:22)
[2021-10-11] MEDS: HEPARIN 5,000 UNIT/ML VIAL SQ SCH ×2 (08:22→21:36)
[2021-10-11] MEDS: TRIAMCINOLONE CREAM 0.1% 15G 1 DOSE TUBE TOPICAL SCH ×2 (08:23→21:02)
[2021-10-11] MEDS ORDERED: LOSARTAN 50 MG TABLET PO SCH (09:00)
[2021-10-11] MEDS ORDERED: NON FORMULARY MEDICATION 1 DOSE MISCELL (Losartan 100 mg tablet) PO SCH (09:00)
--- NOTE | 2021-10-11 09:11 | Internal Med Progress Note ---
SUBJECTIVE Subjective Patient information: Note initiated : 10/11/21 at 9:07 am Service Date, if different from initiated Date: [] Patient: Yamileth Roach 86 y/o F admitted on 10/10/21 for fall. Chief Complaint: [] Interval history: Ms. Roach is a 86 year old F history of Alzheimer's Dementia, essential HTN, mixed dyslipidemia, CKD IV, hypothyroidism, p/w fall. She is a assisted living facility/memory care facility resident. Yesterday when she was trying to get up from bed she fell onto the ground. She denies any chest pain or palpitation. She denies any headache. She denies any LOC. She was sent to our ER by EMS on 10/08 for further evaluation. She is c/o aching pain of her left hip, 5/10, non radiating, constant at rest, and 10/10 when she tries to move her left leg. She was also being placed on 4L/min supplemental oxygen initially, currently at 2L/min. Labs significant for elevated serum Cr level initially at 3.3 with a baseline of 1.5. BNP 760. CXR showing signs of mild CHF. Head CT w/o contrast no signs of acute intracranial pathologies. CT pelvis showing acute oblique, comminuted, minimally displaced fracture of the posterior left ilium. 10/11: On 2L/min oxygen. c/o 5/10 pain of her left hip. Denies SOB or chest pain. D enies fever or chills or sweating. Pending physical therapy occupational therapy evaluation. Constitutional Vitals: Vital Signs Temp Pulse Resp BP Pulse Ox 36.8 C 92 H 22 132/59 90 10/11/21 08:00 10/11/21 08:00 10/11/21 08:00 10/11/21 08:00 10/11/21 08:00 Period Temp Pulse Resp BP Sys/Flores Pulse Ox Last 24 Hr 36.3 C-36.9 C 79-112 18-22 103-230/44-183 88-97 Intake and Output 10/10/21 10/11/21 10/11/21 21:59 05:59 13:59 Intake Total 100 Output Total 475 350 Balance -475 -250 Weight 66.814 kg Intake & Output: Intake & Output 10/10/21 10/11/21 10/11/21 21:59 05:59 13:59 Intake Total 100 Output Total 475 350 Balance -475 -250 Weight 66.814 kg Intake: Oral 100 Output: Void Amount 350 Urine/Stool Mix 475 Other: Urine Appearance Clear Urine Color Straw Urine Odor Normal Stool Size Small Stool Color Brown Brown Black Stool Consistency Liquid Soft Watery Formed Loose # of times incontinent of 1 Bowels General appearance: average body habitus, cooperative and no acute distress Head Head exam: Present atraumatic and normal inspection Eye Eye exam: Present normal appearance ENT ENT exam: Present mucous membranes moist, normal exam and normal external ear exam Additional comments: Nasal cannula in place Neck Neck exam: Present normal inspection Respiratory Respiratory exam: Present normal respiratory exam Cardiovascular Cardiovascular exam: Present normal rate and rhythm GI/Abdominal GI/Abdominal exam: Present normal bowel sounds Extremities Exam Extremities exam: Present tenderness; Absent full ROM Back Exam Back exam: Present normal inspection Neurological Exam Neurological exam: Present alert and oriented X3 Skin Skin exam: Present intact and warm OBJ DATA Labs CBC & Chem 7: 10/09/21 16:50 10/11/21 06:34 Labs: Abnormal Lab Results 10/11/21 10/10/21 10/09/21 06:34 06:20 16:50 Hct MCV MPV Lymph % (Auto) Absolute Neutrophils POC Potassium 5.3 H Anion Gap 17.0 H POC BUN 71 H BUN 57 H 64 H Creatinine 1.5 H 2.2 H POC Creatinine 3.3 H Glucose 108 H POC Glucose 106 H POC WB Ioniz Calcium 1.15 L NT-Pro-B Natriuret Pep 760.5 H Globulin 4.2 H Albumin/Globulin Ratio 0.8 L 10/09/21 16:50 Hct 46.0 H MCV 103.4 H MPV 10.9 H Lymph % (Auto) 14.6 L Absolute Neutrophils 8.08 H POC Potassium Anion Gap POC BUN BUN Creatinine POC Creatinine Glucose POC Glucose POC WB Ioniz Calcium NT-Pro-B Natriuret Pep Globulin Albumin/Globulin Ratio Meds: Medications Acetaminophen (Acetaminophen 500 Mg Tablet) 1,000 mg PO TID [facility]; Protocol Last Admin: 10/11/21 08:21 Dose: 1,000 mg Documented by: Acetaminophen (Acetaminophen 325 Mg Tablet) 650 mg PO Q6HP PRN; Protocol PRN Reason: Per Pain Protocol/Fever > 101 Albuterol/Ipratropium (Ipratropium/Albuterol 3 Ml Ampul.Neb) 3 ml NEB Q4HRT PRN PRN Reason: Wheezing Carvedilol ([facility] 3.125 Mg [facility]t) [facility] Last Admin: 10/11/21 08:22 Dose: 3.125 mg Documented by: Diltiazem HCl (Diltiazem 180 Mg Cap.Xl.24h) 360 mg PO DAILY [facility] Last Admin: 10/11/21 08:22 Dose: 360 mg Documented by: Docusate Sodium (Docusate Sodium 100 Mg Capsule) 100 mg PO BID [facility] Last Admin: 10/11/21 08:22 Dose: 100 mg Documented by: Donepezil HCl (Donepezil 5 Mg Tablet) 5 mg PO QHS [facility] Last Admin: 10/10/21 22:00 Dose: 5 mg Documented by: Ferrous Sulfate (Ferrous Sulfate 325 Mg Tablet) 325 mg PO [facility] Last Admin: 10/11/21 08:22 Dose: 325 mg Documented by: Gabapentin (Gabapentin 100 Mg Capsule) 100 mg PO BID [facility] Last Admin: 10/11/21 08:22 Dose: 100 mg Documented by: Heparin Sodium (Porcine) (Heparin 5,000 Unit/Ml Vial) 5,000 unit SQ Q12 [facility] Last Admin: 10/11/21 08:22 Dose: 5,000 unit Documented by: Hydralazine HCl (Hydralazine 20 Mg/Ml Vial) 10 mg IV Q4-6HP PRN PRN Reason: Hypertension Iron Carb/Multivit/[place]/Folic Acid (Multivit,Ther Iron,Ca,Fa & Min 1 Tablet) 1 tab PO DAILY [facility] Last Admin: 10/11/21 08:22 Dose: 1 tab Documented by: Levothyroxine Sodium (Levothyroxine 50 Mcg Tablet) 50 mcg PO QDAY [facility] Last Admin: 10/11/21 08:22 Dose: 50 mcg Documented by: Loperamide HCl (Loperamide 2 Mg Capsule) 2 mg PO Q6H PRN PRN Reason: Diarrhea Memantine (Memantine 10 Mg Tablet) 10 mg PO BID [facility] Last Admin: 10/11/21 08:22 Dose: 10 mg Documented by: Morphine Sulfate (Morphine 4 Mg/Ml Vial) 4 mg IV Q4HP PRN; Protocol PRN Reason: Per Pain Protocol Last Admin: 10/11/21 02:45 Dose: 4 mg Documented by: Ondansetron HCl (Ondansetron 4 Mg/2 Ml Vial) 4 mg IV Q6HP PRN PRN Reason: Nausea And Vomiting Oxycodone HCl (Oxycodone Hcl 5 Mg Tablet) 5 mg PO Q6HP PRN; Protocol PRN Reason: Per Pain Protocol Lovastatin 20 Mg (Tablet) 1 dose PO QPM [facility] Senna (Sennosides 1 Tablet) 2 tab PO HS [facility] Last Admin: 10/10/21 20:49 Dose: 2 tab Documented by: Sodium Chloride (0.9 % Sodium Chloride 10 Ml Syringe) 10 ml IV Q8 [facility] Last Admin: 10/11/21 05:40 Dose: 10 ml Documented by: Torsemide (Torsemide 10 Mg Tablet) 40 mg PO BID [facility] Last Admin: 10/11/21 08:21 Dose: 40 mg Documented by: Tramadol HCl (Tramadol 50 Mg Tablet) 50 mg PO Q6HP PRN PRN Reason: Pain Trazodone HCl (Trazodone Hcl 50 Mg Tablet) 25 mg PO HSP PRN PRN Reason: Insomnia Triamcinolone Acetonide (Triamcinolone Cream 0.1% 15g 1 Dose Tube) 1 dose TOPICAL BID [facility] Last Admin: 10/11/21 08:23 Dose: Not Given Documented by: A/P Assessment and plan (1) Closed pelvic fracture: Status: Acute (2) Stage 2 acute kidney injury: Status: Acute (3) CKD (chronic kidney disease) stage 4, GFR 15-29 ml/min: Status: Chronic (4) 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: Status: Chronic (5) Hyperlipidemia: Status: Chronic (6) Hypothyroidism: Status: Chronic (7) Alzheimer's dementia: Status: Acute (8) CHF (congestive heart failure), NYHA class III: Status: Acute Narrative A/P Narrative: Assessment and Plans: 1. Closed, minimally displaced, left posterior ilial fracture: Inpatient med surg Tramadol PRN mild pain Oxycodone PRN moderate pain Morphine IV PRN severe pain Bedrest Physical therapy Occupational therapy factory maintenance manager consult for placement planning 2. CHF: Not previously diagnosed Intake and output Daily weigh 2L/day fluid restriction Supplemental oxygen therapy titrate to achieve spo2>=92%, currently on 2L/min s/p IV Lasix given in the ED Coreg Resume Losartan Torsemide 2D echocardiogram, results pending 3. Stage 2 acute kidney injury in the context of CKD IV: Baseline serum Cr level 1.5, currently back to the baseline Avoid nephrotoxic agents Resume Losartan Saline lock CMP in the morning to trend kidney functions 4. Essential HTN: Diltiazem Coreg Resume Losartan Torsemide Hydralazine IV PRN SBP>=180 and/or DBP>=110mmHg 5. Mixed dyslipidemia: Continue statin therapy 6. Alzheimer's Dementia: Donepezil Memantine 7. Hypothyroidism: Continue thyroid replacement therapy GI ppx: not currently indicated DVT ppx: Heparin Code status: DNI DNR Prognosis: stable Disposition: inpatient med sug telemetry Time Spent With Patient Time: Total time spent is greater than 50% in coordination of care (as documented) at patient's floor/unit and/or counseling patient: Total time spent with greater than 50% in coordination of care (as documented) at patient's floor/unit and/or counseling patient:: Greater than 35 minutes QUALITY VTE Deep Vein Thrombosis/Pulmonary Embolism Present on Admission: No
[2021-10-11] MEDS: oxyCODONE HCL 5 MG TABLET PO PRN (10:00)
--- NOTE | 2021-10-11 16:56 | Cat Scan Report ---
CLINICAL INFORMATION: Decreased mental status COMPARISON: Head CT two days prior 10/09/2021 TECHNIQUE: 2.5 mm helical slices were obtained in the skull base to vertex. Following reconstruction, axial reformatted images were reviewed at bone and parenchymal windows. The exam was performed using radiation dose optimization techniques including, but not limited to, automated exposure control, adjustment of the mA and/or kV according to patient size and use of iterative reconstruction technique. FINDINGS: The ventricles, sulci, fissures, and cisterns are symmetrically enlarged compatible with mild age-related atrophy. No extra-axial fluid collections are identified. Mild patchy chronic ischemic changes, in the deep cerebral white matter, are expected for age. Small remote cortical-based infarct in the right occipital lobe appreciated with a few remote lacunar infarcts in the basal ganglia and right thalamus. There is no hemorrhage, mass effect, or edema. Bone windows show severe left mastoiditis. IMPRESSION: Mild atrophy and moderate chronic ischemic changes in the deep cerebral white matter-expected for age. Small cortical-based infarct right occipital lobe with scattered remote lacunar infarcts in the basal ganglia and right thalamus. No intracerebral hemorrhage. Stable exam since the study two days ago Severe chronic left mastoiditis Interpreted and Authenticated by: Colton Turner 10/11/21
[2021-10-11 17:08] LABS: Appearance,Urine HAZY (Clear); Bilirubin,Urine Negative (Negative); Color,Urine YELLOW; Culture Indicated,Urine yes; Glucose,Urine (UA) Negative (Negative); Ketones,Urine Negative (Negative); Leukocyte Esterase,Urine 75 /uL (Negative); Mucus,Urine FEW /hpf; Nitrate,Urine Negative (Negative); Protein,Urine Negative (Negative); Urine Blood Negative (Negative); Urine Hyaline Cast 1 /lph (0-2); Urine RBC 3 /hpf (0-3); Urine Squamous Epithelial Cell 4 /hpf (0-4); Urine WBC 10 /hpf (0-4); Urobilinogen,Urine Negative
[2021-10-11] MEDS: SENNOSIDES 1 TABLET PO SCH (21:02)
[2021-10-11] MEDS: DONEPEZIL 5 MG TABLET PO SCH (21:40)
[2021-10-12] MEDS: oxyCODONE HCL 5 MG TABLET PO PRN ×3 (04:20→19:14)
[2021-10-12] MEDS: 0.9 % SODIUM CHLORIDE 10 ML SYRINGE IV SCH ×3 (04:20→21:28)
[2021-10-12 07:09] LABS: ALT/SGPT 12 U/L (<40); AST/SGOT 15 U/L (<32); Albumin 3.1 gm/dL (3.2-5.2); Albumin/Globulin Ratio 0.8 (1.0-2.3); Alkaline Phosphatase 68 U/L (39-117); Bilirubin,Total 0.3 mg/dL (0.1-1.0); Blood Urea Nitrogen 72 mg/dL (8-23); Calcium 8.7 mg/dL (8.6-10.4); Carbon Dioxide 22 mmol/L (22-30); Chloride 104 mmol/L (96-108); Globulin 3.8 gm/dL (2.2-3.7); Glomerular Filtration Rate 14; Glucose 88 mg/dL (70-105)
[2021-10-12] MEDS: HEPARIN 5,000 UNIT/ML VIAL SQ SCH ×2 (09:32→21:30)
[2021-10-12] MEDS: TORSEMIDE 10 MG TABLET PO SCH (09:33)
[2021-10-12] MEDS: ACETAMINOPHEN 500 MG TABLET PO SCH ×3 (09:34→21:29)
[2021-10-12] MEDS: MEMANTINE 10 MG TABLET PO SCH ×2 (09:34→21:29)
[2021-10-12] MEDS: DILTIAZEM 180 MG CAP.XL.24H PO SCH (09:34)
[2021-10-12] MEDS: DOCUSATE SODIUM 100 MG CAPSULE PO SCH ×2 (09:35→21:29)
[2021-10-12] MEDS: GABAPENTIN 100 MG CAPSULE PO SCH ×2 (09:35→21:29)
[2021-10-12] MEDS: MULTIVIT,THER IRON,CA,FA & MIN 1 TABLET PO SCH (09:35)
[2021-10-12] MEDS: FERROUS SULFATE 325 MG TABLET PO SCH (09:35)
[2021-10-12] MEDS: TRIAMCINOLONE CREAM 0.1% 15G 1 DOSE TUBE TOPICAL SCH ×2 (09:35→21:27)
[2021-10-12] MEDS: LEVOTHYROXINE 50 MCG TABLET PO SCH (09:35)
--- NOTE | 2021-10-12 11:35 | Internal Med Progress Note ---
SUBJECTIVE Subjective Patient information: Note initiated : 10/12/21 at 11:30 am Service Date, if different from initiated Date: [] Patient: Yamileth Roach 86 y/o F admitted on 10/10/21 for fall. Chief Complaint: [] Interval history: Ms. Roach is a 86 year old F history of Alzheimer's Dementia, essential HTN, mixed dyslipidemia, CKD IV, hypothyroidism, p/w fall. She is a assisted living facility/memory care facility resident. Yesterday when she was trying to get up from bed she fell onto the ground. She denies any chest pain or palpitation. She denies any headache. She denies any LOC. She was sent to our ER by EMS on 10/08 for further evaluation. She is c/o aching pain of her left hip, 5/10, non radiating, constant at rest, and 10/10 when she tries to move her left leg. She was also being placed on 4L/min supplemental oxygen initially, currently at 2L/min. Labs significant for elevated serum Cr level initially at 3.3 with a baseline of 1.5. BNP 760. CXR showing signs of mild CHF. Head CT w/o contrast no signs of acute intracranial pathologies. CT pelvis showing acute oblique, comminuted, minimally displaced fracture of the posterior left ilium. 10/11: On 2L/min oxygen. c/o 5/10 pain of her left hip. Denies SOB or chest pain. Denies fever or chills or sweating. Pending physical therapy occupational therapy evaluation. 10/12: On 2L/min oxygen. Serum Cr level 1.5-->2.8. Patient is currently sleeping. Otherwise, there was no other major overnight events. Constitutional Vitals: Vital Signs Temp Pulse Resp BP Pulse Ox 36.3 C 82 14 101/53 93 10/12/21 08:00 10/12/21 08:00 10/12/21 08:00 10/12/21 08:00 10/12/21 08:00 Period Temp Pulse Resp BP Sys/Flores Pulse Ox Last 24 Hr 36.3 C-37.1 C 60-82 13-18 101-111/52-66 92-96 Intake and Output 10/11/21 10/12/21 10/12/21 21:59 05:59 13:59 Intake Total 450 75 Output Total 1 Balance 449 75 Weight 66.423 kg Intake & Output: Intake & Output 10/11/21 10/12/21 10/12/21 21:59 05:59 13:59 Intake Total 450 75 Output Total 1 Balance 449 75 Weight 66.423 kg Intake: Oral 450 75 Output: # of times incontinent of urine 1 Other: Meal Lunch Percent of Meal Consumed 25% Feeding Ability Assist with Tray Set Up Urine Appearance Clear Uretheral (Velásquez) Clear Sediment Urine Color Straw Light Rachele Dark Rachele Uretheral (Velásquez) Bright Yellow Urine Odor Normal Normal Uretheral (Velásquez) Normal Stool Size Smear Stool Color Brown Green Stool Consistency Soft Exam: sleeping Head Head exam: Present atraumatic and normal inspection Eye Eye exam: Present normal appearance ENT ENT exam: Present mucous membranes moist, normal exam and normal external ear exam Neck Neck exam: Present normal inspection Respiratory Respiratory exam: Present normal respiratory exam Cardiovascular Cardiovascular exam: Present normal rate and rhythm GI/Abdominal GI/Abdominal exam: Present normal bowel sounds Back Exam Back exam: Present normal inspection Neurological Exam Neurological exam: Absent alert or oriented X3 Additional comments: sleeping Skin Skin exam: Present intact and warm OBJ DATA Labs CBC & Chem 7: 10/09/21 16:50 10/12/21 05:33 Labs: Abnormal Lab Results 10/12/21 10/12/21 10/12/21 05:33 05:32 00:30 Hct MCV MPV Lymph % (Auto) Absolute Neutrophils POC Potassium Anion Gap 18.0 H POC BUN BUN 72 H Creatinine 2.8 H POC Creatinine Glucose POC Glucose POC WB Ioniz Calcium Phosphorus 7.0 H* Magnesium 2.6 H Troponin T 0.04 H* 0.04 H* NT-Pro-B Natriuret Pep Albumin 3.1 L Globulin 3.8 H Albumin/Globulin Ratio 0.8 L Urine Appearance Ur Leukocyte Esterase Urine WBC Urine Mucus 10/11/21 10/11/21 10/11/21 18:01 16:13 06:34 Hct MCV MPV Lymph % (Auto) Absolute Neutrophils POC Potassium Anion Gap 17.0 H POC BUN BUN 57 H Creatinine 1.5 H POC Creatinine Glucose 108 H POC Glucose POC WB Ioniz Calcium Phosphorus Magnesium Troponin T 0.03 H NT-Pro-B Natriuret Pep Albumin Globulin 4.2 H Albumin/Globulin Ratio 0.8 L Urine Appearance Hazy A Ur Leukocyte Esterase 75 A Urine WBC 10 H Urine Mucus Few A 10/10/21 10/09/21 10/09/21 06:20 16:50 16:50 Hct 46.0 H MCV 103.4 H MPV 10.9 H Lymph % (Auto) 14.6 L Absolute Neutrophils 8.08 H POC Potassium 5.3 H Anion Gap POC BUN 71 H BUN 64 H Creatinine 2.2 H POC Creatinine 3.3 H Glucose POC Glucose 106 H POC WB Ioniz Calcium 1.15 L Phosphorus Magnesium Troponin T NT-Pro-B Natriuret Pep 760.5 H Albumin Globulin Albumin/Globulin Ratio Urine Appearance Ur Leukocyte Esterase Urine WBC Urine Mucus Meds: Medications Acetaminophen (Acetaminophen 500 Mg Tablet) 1,000 mg PO TID [facility]; Protocol Last Admin: 10/12/21 09:34 Dose: 1,000 mg Documented by: Acetaminophen (Acetaminophen 325 Mg Tablet) 650 mg PO Q6HP PRN; Protocol PRN Reason: Per Pain Protocol/Fever > 101 Albuterol/Ipratropium (Ipratropium/Albuterol 3 Ml Ampul.Neb) 3 ml NEB Q4HRT PRN PRN Reason: Wheezing Diltiazem HCl (Diltiazem 180 Mg Cap.Xl.24h) 360 mg PO DAILY [facility] Last Admin: 10/12/21 09:34 Dose: 360 mg Documented by: Docusate Sodium (Docusate Sodium 100 Mg Capsule) 100 mg PO BID [facility] Last Admin: 10/12/21 09:35 Dose: 100 mg Documented by: Donepezil HCl (Donepezil 10 Mg Tablet) 5 mg PO [facility] Ferrous Sulfate (Ferrous Sulfate 325 Mg Tablet) 325 mg PO [facility] Last Admin: 10/12/21 09:35 Dose: 325 mg Documented by: Gabapentin (Gabapentin 100 Mg Capsule) 100 mg PO BID [facility] Last Admin: 10/12/21 09:35 Dose: 100 mg Documented by: Heparin Sodium (Porcine) (Heparin 5,000 Unit/Ml Vial) 5,000 unit SQ Q12 [facility] Last Admin: 10/12/21 09:32 Dose: 5,000 unit Documented by: Hydralazine HCl (Hydralazine 20 Mg/Ml Vial) 10 mg IV Q4-6HP PRN PRN Reason: Hypertension Sodium Chloride (Sodium Chloride 0.9%) 1,000 mls @ 100 mls/hr IV .Q10H [facility] Iron Carb/Multivit/Operations Manager/Folic Acid (Multivit,Ther Iron,Ca,Fa & Min 1 Tablet) 1 tab PO DAILY [facility] Last Admin: 10/12/21 09:35 Dose: 1 tab Documented by: Levothyroxine Sodium (Levothyroxine 50 Mcg Tablet) 50 mcg PO QDAY [facility] Last Admin: 10/12/21 09:35 Dose: 50 mcg Documented by: Loperamide HCl (Loperamide 2 Mg Capsule) 2 mg PO Q6H PRN PRN Reason: Diarrhea Memantine (Memantine 10 Mg Tablet) 10 mg PO BID [facility] Last Admin: 10/12/21 09:34 Dose: 10 mg Documented by: Morphine Sulfate (Morphine 4 Mg/Ml Vial) 4 mg IV Q4HP PRN; Protocol PRN Reason: Per Pain Protocol Last Admin: 10/11/21 02:45 Dose: 4 mg Documented by: Ondansetron HCl (Ondansetron 4 Mg/2 Ml Vial) 4 mg IV Q6HP PRN PRN Reason: Nausea And Vomiting Oxycodone HCl (Oxycodone Hcl 5 Mg Tablet) 5 mg PO Q6HP PRN; Protocol PRN Reason: Per Pain Protocol Last Admin: 10/12/21 04:20 Dose: 5 mg Documented by: Lovastatin 20 Mg (Tablet) 1 dose PO QPM [facility] Last Admin: 10/11/21 21:41 Dose: Not Given Documented by: Senna (Sennosides 1 Tablet) 2 tab PO HS [facility] Last Admin: 10/11/21 21:02 Dose: Not Given Documented by: Sodium Chloride (0.9 % Sodium Chloride 10 Ml Syringe) 10 ml IV Q8 [facility] Last Admin: 10/12/21 04:20 Dose: 10 ml Documented by: Tramadol HCl (Tramadol 50 Mg Tablet) 50 mg PO Q6HP PRN PRN Reason: Pain Trazodone HCl (Trazodone Hcl 50 Mg Tablet) 25 mg PO HSP PRN PRN Reason: Insomnia Triamcinolone Acetonide (Triamcinolone Cream 0.1% 15g 1 Dose Tube) 1 dose TOPICAL BID [facility] Last Admin: 10/12/21 09:35 Dose: Not Given Documented by: A/P Assessment and plan (1) Closed pelvic fracture: Status: Acute (2) Stage 2 acute kidney injury: Status: Acute (3) CKD (chronic kidney disease) stage 4, GFR 15-29 ml/min: Status: Chronic (4) 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: Status: Chronic (5) Hyperlipidemia: Status: Chronic (6) Hypothyroidism: Status: Chronic (7) Alzheimer's dementia: Status: Acute (8) CHF (congestive heart failure), NYHA class III: Status: Acute Narrative A/P Narrative: Assessment and Plans: 1. Closed, minimally displaced, left posterior ilial fracture: Inpatient med surg Tramadol PRN mild pain Oxycodone PRN moderate pain Morphine IV PRN severe pain Bedrest Physical therapy Occupational therapy senior electrical project manager consult for placement planning 2. CHF: Not previously diagnosed Intake and output Daily weigh 2L/day fluid restriction Supplemental oxygen therapy titrate to achieve spo2>=92%, currently on 2L/min s/p IV Lasix given in the ED Coreg Resume Losartan Torsemide 2D echocardiogram, results pending 3. Stage 2 acute kidney injury in the context of CKD IV: Baseline serum Cr level 1.5, currently 2.8 Avoid nephrotoxic agents Hold Losartan/Torsemide Start NS@100cc/hr CMP in the morning to trend kidney functions 4. Essential HTN: Diltiazem Coreg Hold Losartan/Torsemide given worsening kidney functions Hydralazine IV PRN SBP>=180 and/or DBP>=110mmHg 5. Mixed dyslipidemia: Continue statin therapy 6. Alzheimer's Dementia: Donepezil Memantine 7. Hypothyroidism: Continue thyroid replacement therapy GI ppx: not currently indicated DVT ppx: Heparin Code status: DNI DNR Prognosis: guarded Disposition: inpatient med sug telemetry Time Spent With Patient Time: Total time spent is greater than 50% in coordination of care (as documented) at patient's floor/unit and/or counseling patient: Total time spent with greater than 50% in coordination of care (as documented) at patient's floor/unit and/or counseling patient:: Greater than 35 minutes QUALITY VTE Deep Vein Thrombosis/Pulmonary Embolism Present on Admission: No
[2021-10-12] MEDS: 0.9 % SODIUM CHLORIDE 1,000 ML IV SCH ×3 (12:34→22:18)
[2021-10-12] MEDS: morphine 4 MG/ML VIAL IV PRN ×2 (12:55→17:47)
--- NOTE | 2021-10-12 13:11 | EKG ---
[facility] Test Date: 2021-10-11 Pat Name: Yamileth Roach Department: [facility] Room: 114 Gender: Female Youth Counselor: : 1935 Requested By: Kevin Mcdaniels Order Number: [id number] Reading MD: Colton Dos Santos M.D. Measurements Intervals [place] Rate: 56 P: 84 NH: 213 QRS: 38 QRSD: 98 T: 46 QT: 453 QTc: 438 Interpretive Statements Sinus rhythm Borderline prolonged NH interval RSR' in V1 or V2, right VCD or RVH Electronically Signed On 10-12-2021 13:11:35 PST by Colton Dos Santos M.D. /[email or web address]/[email or web address]/[id number]
[2021-10-12] MEDS ORDERED: DONEPEZIL 10 MG TABLET PO SCH (21:00)
[2021-10-12] MEDS: SENNOSIDES 1 TABLET PO SCH (21:28)
[2021-10-12] MEDS: IPRATROPIUM/ALBUTEROL 3 ML AMPUL.NEB NEB PRN (23:49)
[2021-10-13] MEDS ORDERED: 0.9 % SODIUM CHLORIDE 1,000 ML IV SCH (00:30)
[2021-10-13] MEDS ORDERED: IPRATROPIUM/ALBUTEROL 3 ML AMPUL.NEB NEB PRN (00:30)
[2021-10-13] MEDS ORDERED: VANCOMYCIN 1,000 MG in 0.9 % SODIUM CHLORIDE 250 ML IV SCH (01:15)
[2021-10-13] MEDS: PIPERACILLIN SODIUM/TAZOBACTAM 2.25 GM in DEXTROSE 5% IN WATER 50 ML IV SCH ×2 (01:40→08:06)
[2021-10-13 01:47] LABS: Basophils # (Auto) 0.05 K/mcL (0.00-0.30); Basophils % (Auto) 0.4 % (0.0-2.0); Eosinophils # (Auto) 0.21 K/mcL (0.00-0.70); Eosinophils % (Auto) 1.8 % (0.0-7.0); Hematocrit 45.7 % (34.1-44.9); Hemoglobin 14.1 g/dL (11.2-15.7); Lymphocytes # (Auto) 1.98 K/mcL (1.50-4.80); Lymphocytes % (Auto) 16.5 % (15.5-49.0); Mean Cell Volume 107.8 fL (80.0-100.0); Mean Corpuscular HGB Conc 30.9 g/dL (31.0-36.0); Mean Platelet Volume 11.2 fL (7.4-10.4); Monocytes # (Auto) 1.29 K/mcL (0.10-0.90); Monocytes % (Auto) 10.8 % (1.0-12.0); Neutrophils % (Auto) 70.5 % (38.0-78.0); Platelet Count 190 K/mcL (140-440); RBC 4.24 M/mcL (3.59-5.38); Red Cell Distribution Width 14.9 % (11.5-14.5)
[2021-10-13 02:07] LABS: ALT/SGPT 12 U/L (<40); AST/SGOT 15 U/L (<32); Albumin 3.2 gm/dL (3.2-5.2); Albumin/Globulin Ratio 0.8 (1.0-2.3); Alkaline Phosphatase 67 U/L (39-117); Bilirubin,Total 0.2 mg/dL (0.1-1.0); Blood Urea Nitrogen 81 mg/dL (8-23); Calcium 8.4 mg/dL (8.6-10.4); Carbon Dioxide 23 mmol/L (22-30); Chloride 103 mmol/L (96-108); Globulin 4.1 gm/dL (2.2-3.7); Glomerular Filtration Rate 11; Glucose 121 mg/dL (70-105)
[2021-10-13] MEDS: IPRATROPIUM/ALBUTEROL 3 ML AMPUL.NEB NEB PRN (03:54)
--- NOTE | 2021-10-13 05:05 | XRay Report ---
CLINICAL INFORMATION: Dyspnea COMPARISON: 10/09/2021 TECHNIQUE: Portable FINDINGS: Mild cardiomegaly is stable. Since the prior exam only four days ago, there is now considerable left lung volume loss with increased density in the left lower lobe region. This suggests left lower lobe atelectasis. Vague diffuse infiltrate in the left upper lobe appears to be developing.. Right lung is well expanded and clear. Small left pleural effusion noted. IMPRESSION: Suspect left lower lobe atelectasis. The most common cause for this finding, in the acute setting, is a mucous plug occluding the left lower lobe bronchus. Consider vigorous respiratory therapy and repeat two view chest x-ray in the department if patient tolerated. Mild stable cardiomegaly, but no evidence of CHF. Possible developing left upper lobe infiltrate. Interpreted and Authenticated by: Colton Turner 10/13/21
[2021-10-13] MEDS: 0.9 % SODIUM CHLORIDE 10 ML SYRINGE IV SCH ×2 (05:28→16:59)
[2021-10-13] MEDS: 0.9 % SODIUM CHLORIDE 1,000 ML IV SCH (06:27)
[2021-10-13 07:12] LABS: ALT/SGPT 12 U/L (<40); AST/SGOT 20 U/L (<32); Albumin/Globulin Ratio 0.8 (1.0-2.3); Alkaline Phosphatase 62 U/L (39-117); Bilirubin,Total 0.3 mg/dL (0.1-1.0); Blood Urea Nitrogen 83 mg/dL (8-23); Calcium 8.1 mg/dL (8.6-10.4); Carbon Dioxide 21 mmol/L (22-30); Chloride 105 mmol/L (96-108); Globulin 3.8 gm/dL (2.2-3.7); Glomerular Filtration Rate 11; Glucose 109 mg/dL (70-105)
[2021-10-13 07:45] LABS: Phosphorous 8.2 mg/dL (2.5-4.5)
[2021-10-13] MEDS ORDERED: VANCOMYCIN PER PHARMACY IV SCH (07:45)
[2021-10-13] MEDS: FERROUS SULFATE 325 MG TABLET PO SCH (07:57)
[2021-10-13] MEDS: ACETAMINOPHEN 500 MG TABLET PO SCH ×2 (07:57→16:59)
--- NOTE | 2021-10-13 08:35 | Internal Med Progress Note ---
SUBJECTIVE Subjective Patient information: Note initiated : 10/13/21 at 8:30 am Service Date, if different from initiated Date: [] Patient: Yamileth Roach 86 y/o F admitted on 10/10/21 for fall. Chief Complaint: [] Interval history: Ms. Roach is a 86 year old F history of Alzheimer's Dementia, essential HTN, mixed dyslipidemia, CKD IV, hypothyroidism, p/w fall. She is a assisted living facility/memory care facility resident. Yesterday when she was trying to get up from bed she fell onto the ground. She denies any chest pain or palpitation. She denies any headache. She denies any LOC. She was sent to our ER by EMS on 10/08 for further evaluation. She is c/o aching pain of her left hip, 5/10, non radiating, constant at rest, and 10/10 when she tries to move her left leg. She was also being placed on 4L/min supplemental oxygen initially, currently at 2L/min. Labs significant for elevated serum Cr level initially at 3.3 with a baseline of 1.5. BNP 760. CXR showing signs of mild CHF. Head CT w/o contrast no signs of acute intracranial pathologies. CT pelvis showing acute oblique, comminuted, minimally displaced fracture of the posterior left ilium. 10/11: On 2L/min oxygen. c/o 5/10 pain of her left hip. Denies SOB or chest pain. D enies fever or chills or sweating. Pending physical therapy occupational therapy evaluation. 10/12: On 2L/min oxygen. Serum Cr level 1.5-->2.8. Patient is currently sleeping. Otherwise, there was no other major overnight events. 10/13: Overnight patient's oxygen requirement went up, now on 7L/min and about to go up to nonrebreather oxygen. Repeat CXR earlier this morning showing left basal a telectasis and left upper lobe infiltrates. Vancomycin and Zosyn were started. Kidney functions worsening. Normal saline started on 10/12. Subjective not obtained due to clinical situations. Constitutional Vitals: Vital Signs Temp Pulse Resp BP Pulse Ox 36.6 C 67 19 95/48 90 10/13/21 07:14 10/13/21 07:14 10/13/21 07:14 10/13/21 07:14 10/13/21 07:14 Period Temp Pulse Resp BP Sys/Flores Pulse Ox Last 24 Hr 36.2 C-36.8 C 58-72 14-22 90-108/43-74 90-99 Intake and Output 10/12/21 10/13/21 10/13/21 21:59 05:59 13:59 Intake Total 150 1473 Output Total 175 Balance 150 1298 Weight 66.587 kg Intake & Output: Intake & Output 10/12/21 10/13/21 10/13/21 21:59 05:59 13:59 Intake Total 150 1473 Output Total 175 Balance 150 1298 Weight 66.587 kg Intake: IV 1273 Sodium Chloride 0.9% 1,000 ml @ 973 100 mls/hr IV .Q10H [facility] Rx#: [id number] Zosyn 2.25 gm In Dextrose 5% in 50 Water 50 ml @ 100 mls/hr IV Q8H [facility] Rx#:[id number] Vancomycin 1,000 mg In Sodium 250 Chloride 0.9% 250 ml @ 250 mls/ hr IV Q24H [facility] Rx#:[id number] Oral 150 200 Output: Urine Catheter Amount 175 Other: Urine Appearance Uretheral (Velásquez) Clear Urine Color Uretheral (Velásquez) Dark Yellow Urine Odor Uretheral (Velásquez) Normal General appearance: average body habitus, cooperative and mild distress Exam: sleeping Head Head exam: Present atraumatic and normal inspection Eye Eye exam: Present normal appearance ENT ENT exam: Present mucous membranes moist, normal exam and normal external ear exam Additional comments: high flow oxygen in place Neck Neck exam: Present normal inspection Respiratory Respiratory exam: Present decreased breath sounds and rhonchi Cardiovascular Cardiovascular exam: Present normal rate and rhythm GI/Abdominal GI/Abdominal exam: Present normal bowel sounds Extremities Exam Additional comments: left lateral hip tenderness to palpation Back Exam Back exam: Present normal inspection Neurological Exam Neurological exam: Present alert and oriented X3 Skin Skin exam: Present intact and warm OBJ DATA Labs CBC & Chem 7: 10/13/21 00:59 10/13/21 05:37 Labs: Abnormal Lab Results 10/13/21 10/13/21 10/13/21 05:37 00:59 00:59 WBC 12.0 H Hct 45.7 H MCV 107.8 H MCHC 30.9 L RDW 14.9 H MPV 11.2 H [place] # (Auto) 1.29 H Absolute Neutrophils 8.46 H Potassium 5.2 H Carbon Dioxide 21 L Anion Gap BUN 83 H 81 H Creatinine 3.4 H 3.4 H Glucose 109 H 121 H Calcium 8.1 L 8.4 L Phosphorus 8.2 H* Magnesium Troponin T Albumin 3.0 L Globulin 3.8 H 4.1 H Albumin/Globulin Ratio 0.8 L 0.8 L Urine Appearance Ur Leukocyte Esterase Urine WBC Urine Mucus 10/12/21 10/12/21 10/12/21 05:33 05:32 00:30 WBC Hct MCV MCHC RDW MPV [place] # (Auto) Absolute Neutrophils Potassium Carbon Dioxide Anion Gap 18.0 H BUN 72 H Creatinine 2.8 H Glucose Calcium Phosphorus 7.0 H* Magnesium 2.6 H Troponin T 0.04 H* 0.04 H* Albumin 3.1 L Globulin 3.8 H Albumin/Globulin Ratio 0.8 L Urine Appearance Ur Leukocyte Esterase Urine WBC Urine Mucus 10/11/21 10/11/21 10/11/21 18:01 16:13 06:34 WBC Hct MCV MCHC RDW MPV [place] # (Auto) Absolute Neutrophils Potassium Carbon Dioxide Anion Gap 17.0 H BUN 57 H Creatinine 1.5 H Glucose 108 H Calcium Phosphorus Magnesium Troponin T 0.03 H Albumin Globulin 4.2 H Albumin/Globulin Ratio 0.8 L Urine Appearance Hazy A Ur Leukocyte Esterase 75 A Urine WBC 10 H Urine Mucus Few A Meds: Medications Acetaminophen (Acetaminophen 500 Mg Tablet) 1,000 mg PO TID [facility]; Protocol Last Admin: 10/13/21 07:57 Dose: 1,000 mg Documented by: Acetaminophen (Acetaminophen 325 Mg Tablet) 650 mg PO Q6HP PRN; Protocol PRN Reason: Per Pain Protocol/Fever > 101 Albuterol/Ipratropium (Ipratropium/Albuterol 3 Ml Ampul.Neb) 3 ml NEB Q4HRT PRN PRN Reason: Wheezing Last Admin: 10/13/21 03:54 Dose: 3 ml Documented by: Albuterol/Ipratropium (Ipratropium/Albuterol 3 Ml Ampul.Neb) 3 ml NEB ONCE PRN PRN Reason: Shortness Of Breath Diltiazem HCl (Diltiazem 180 Mg Cap.Xl.24h) 360 mg PO DAILY [facility] Last Admin: 10/12/21 09:34 Dose: 360 mg Documented by: Docusate Sodium (Docusate Sodium 100 Mg Capsule) 100 mg PO BID [facility] Last Admin: 10/12/21 21:29 Dose: 100 mg Documented by: Donepezil HCl (Donepezil 10 Mg Tablet) 5 mg PO [facility] Last Admin: 10/12/21 21:30 Dose: 5 mg Documented by: Ferrous Sulfate (Ferrous Sulfate 325 Mg Tablet) 325 mg PO [facility] Last Admin: 10/13/21 07:57 Dose: 325 mg Documented by: Gabapentin (Gabapentin 100 Mg Capsule) 100 mg PO BID [facility] Last Admin: 10/12/21 21:29 Dose: 100 mg Documented by: Heparin Sodium (Porcine) (Heparin 5,000 Unit/Ml Vial) 5,000 unit SQ Q12 [facility] Last Admin: 10/12/21 21:30 Dose: 5,000 unit Documented by: Hydralazine HCl (Hydralazine 20 Mg/Ml Vial) 10 mg IV Q4-6HP PRN PRN Reason: Hypertension Sodium Chloride (Sodium Chloride 0.9%) 1,000 mls @ 100 mls/hr IV .Q10H [facility] Last Admin: 10/13/21 06:27 Dose: Not Given Documented by: Sodium Chloride (Sodium Chloride 0.9%) 1,000 mls @ 0 mls/hr IV .Q0M [facility] Piperacillin Sod/Tazobactam (Sod 2.25 gm/ Dextrose) 50 mls @ 100 mls/hr IV Q8H [facility]; Protocol Last Admin: 10/13/21 08:06 Dose: 100 mls/hr Documented by: Iron Carb/Multivit/[place]/Folic Acid (Multivit,Ther Iron,Ca,Fa & Min 1 Tablet) 1 tab PO DAILY [facility] Last Admin: 10/12/21 09:35 Dose: 1 tab Documented by: Levothyroxine Sodium (Levothyroxine 50 Mcg Tablet) 50 mcg PO QDAY [facility] Last Admin: 10/12/21 09:35 Dose: 50 mcg Documented by: Loperamide HCl (Loperamide 2 Mg Capsule) 2 mg PO Q6H PRN PRN Reason: Diarrhea Memantine (Memantine 10 Mg Tablet) 10 mg PO BID [facility] Last Admin: 10/12/21 21:29 Dose: 10 mg Documented by: Morphine Sulfate (Morphine 4 Mg/Ml Vial) 4 mg IV Q4HP PRN; Protocol PRN Reason: Per Pain Protocol Last Admin: 10/12/21 17:47 Dose: 4 mg Documented by: Ondansetron HCl (Ondansetron 4 Mg/2 Ml Vial) 4 mg IV Q6HP PRN PRN Reason: Nausea And Vomiting Oxycodone HCl (Oxycodone Hcl 5 Mg Tablet) 5 mg PO Q6HP PRN; Protocol PRN Reason: Per Pain Protocol Last Admin: 10/12/21 19:14 Dose: 5 mg Documented by: Lovastatin 20 Mg (Tablet) 1 dose PO QPM [facility] Last Admin: 10/12/21 21:28 Dose: Not Given Documented by: Senna (Sennosides 1 Tablet) 2 tab PO HS [facility] Last Admin: 10/12/21 21:28 Dose: Not Given Documented by: Sodium Chloride (0.9 % Sodium Chloride 10 Ml Syringe) 10 ml IV Q8 [facility] Last Admin: 10/13/21 05:28 Dose: Not Given Documented by: Tramadol HCl (Tramadol 50 Mg Tablet) 50 mg PO Q6HP PRN PRN Reason: Pain Trazodone HCl (Trazodone Hcl 50 Mg Tablet) 25 mg PO HSP PRN PRN Reason: Insomnia Triamcinolone Acetonide (Triamcinolone Cream 0.1% 15g 1 Dose Tube) 1 dose TOPICAL BID [facility] Last Admin: 10/12/21 21:27 Dose: Not Given Documented by: Vancomycin HCl (Vancomycin Per Pharmacy) 1 order IV UD [facility] A/P Assessment and plan (1) Closed pelvic fracture: Status: Acute (2) Stage 2 acute kidney injury: Status: Acute (3) CKD (chronic kidney disease) stage 4, GFR 15-29 ml/min: Status: Chronic (4) 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: Status: Chronic (5) Hyperlipidemia: Status: Chronic (6) Hypothyroidism: Status: Chronic (7) Alzheimer's dementia: Status: Acute (8) CHF (congestive heart failure), NYHA class III: Status: Acute (9) HCAP (healthcare-associated pneumonia): Status: Acute Narrative A/P Narrative: Assessment and Plans: 1. Closed, minimally displaced, left posterior ilial fracture: Inpatient PCU telemetry Tramadol PRN mild pain Oxycodone PRN moderate pain Morphine IV PRN severe pain Bedrest Physical therapy Occupational therapy senior product manager consult for placement planning 2. HCAP: Blood culture Sputum culture Supplemental oxygen therapy, titrate to achieve spo2>88-90% Vancomycin Zosyn cbc w/ auto diff in the morning to trend WBC Tylenol PRN fever DuoNEB NEB PRN wheezing Robitussin DM PRN cough 3. Stage 2 acute kidney injury in the context of CKD IV: Baseline serum Cr level 1.5, currently 3.4 Avoid nephrotoxic agents Hold Losartan/Torsemide Start NS@100cc/hr CMP in the morning to trend kidney functions Consult Dr. Galloway, recs. appreciated 4. Essential HTN: Hold Diltiazem/Coreg due to soft blood pressure Hold Losartan/Torsemide given worsening kidney functions Hydralazine IV PRN SBP>=180 and/or DBP>=110mmHg 5. Mixed dyslipidemia: Continue statin therapy 6. Alzheimer's Dementia: Donepezil Memantine 7. Hypothyroidism: Continue thyroid replacement therapy GI ppx: not currently indicated DVT ppx: Heparin Code status: DNI DNR Prognosis: extremely guarded Disposition: inpatient PCU telemetry Time Spent With Patient Time: Total time spent is greater than 50% in coordination of care (as documented) at patient's floor/unit and/or counseling patient: Total time spent with greater than 50% in coordination of care (as documented) at patient's floor/unit and/or counseling patient:: Greater than 35 minutes QUALITY VTE Deep Vein Thrombosis/Pulmonary Embolism Present on Admission: No
[2021-10-13] MEDS ORDERED: guaiFENesin/DEXTROMETHORPHAN ORAL SOL PO PRN (08:36)
--- NOTE | 2021-10-13 09:45 | Nephrology Consult Note ---
HPI Data of Consult Patient: known to practice within the last 3 years Consult date: 10/13/21 Requesting physician: Kevin Mcdaniels Primary Care Provider: Martina Henao Consult Narrative Chief complaint: Fall with fx pelvis Reason for consult: ARF on CKD 4 History of present illness: Yamileth Roach is an 86-year-old female with hypertension here for management for PNA. She is followed in the renal clinic by Dr Juan Carlos Figueroa with CKD 4 and HTN as outlined below. HPI per Hospital Medicine Physicican: History of Alzheimer's Dementia, essential HTN, mixed dyslipidemia, CKD IV, hypothyroidism, p/w fall. She is a assisted living facility/memory care facility resident. Yesterday when she was trying to get up from bed she fell onto the ground. She denies any chest pain or palpitation. She denies any headache. She denies any LOC. She was sent to our ER by EMS on 10/08 for further evaluation. She is c/o aching pain of her left hip, 5/10, non radiating, constant at rest, and 10/10 when she tries to move her left leg. She was also being placed on 4L/min supplemental oxygen initially, currently at 2L/min. Labs significant for elevated serum Cr level initially at 3.3 with a baseline of 1.5. BNP 760. CXR showing signs of mild CHF. Head CT w/o contrast no signs of acute intracranial pathologies. CT pelvis showing acute oblique, comminuted, minimally displaced fracture of the posterior left ilium. Vital Signs Temp Pulse Resp BP Pulse Ox 10/13/21 08:00 85 L 10/13/21 07:14 36.6 C 67 19 95/48 90 10/13/21 07:10 90 10/13/21 03:46 36.2 C 20 108/52 90 10/13/21 01:32 14 99 10/13/21 00:00 36.6 C 60 22 93/43 10/12/21 20:00 36.8 C 65 22 90/49 91 10/12/21 16:00 36.2 C 58 L 15 108/47 91 10/12/21 12:00 36.6 C 72 15 105/74 93 Intake and Output 10/12/21 10/13/21 10/13/21 21:59 05:59 13:59 Intake Total 150 1473 50 Output Total 175 Balance 150 1298 50 Intake: IV 1273 50 Sodium Chloride 0.9% 1,000 ml @ 973 100 mls/hr IV .Q10H [facility] Rx#: [id number] Zosyn 2.25 gm In Dextrose 5% in 50 50 Water 50 ml @ 100 mls/hr IV Q8H [facility] Rx#:[id number] Vancomycin 1,000 mg In Sodium 250 Chloride 0.9% 250 ml @ 250 mls/ hr IV Q24H [facility] Rx#:[id number] Oral 150 200 Output: Urine Catheter Amount 175 Other: Urine Appearance Clear Uretheral (Velásquez) Clear Clear Urine Color Dark Yellow Uretheral (Velásquez) Dark Yellow Dark Yellow Urine Odor Uretheral (Velásquez) Normal Weight 66.587 kg Laboratory Tests 10/13/21 10/13/21 00:59 05:37 Sodium 141 Potassium 4.9 Chloride 103 Carbon Dioxide 23 Anion Gap 15.0 BUN 81 H Creatinine 3.4 H GFR Calculation 11 Glucose 121 H Calcium 8.4 L AST 15 ALT 12 Alkaline Phosphatase 67 62 Albumin 3.2 3.0 L Globulin 4.1 H Albumin/Globulin Ratio 0.8 L 10/13/21 00:59 WBC 12.0 H Hgb 14.1 Hct 45.7 H Plt Count 190 Eos % (Auto) 1.8 Serum Creatinine ABG Echo 09/2021 CXR 10/13/2021: Mild cardiomegaly is stable. Since the prior exam only four days ago, there is now considerable left lung volume loss with increased density in the left lower lobe region. This suggests left lower lobe atelectasis. Vague diffuse infiltrate in the left upper lobe appears to be developing.. Right lung is well expanded and clear. Small left pleural effusion noted. IMPRESSION: Suspect left lower lobe atelectasis. The most common cause for this finding, in the acute setting, is a mucous plug occluding the left lower lobe bronchus. Consider vigorous respiratory therapy and repeat two view chest x-ray in the department if patient tolerated. Current Medications Acetaminophen (Acetaminophen 500 Mg Tablet) 1,000 mg PO TID KELSEY; Protocol Last Admin: 10/13/21 07:57 Dose: 1,000 mg Documented by: Acetaminophen (Acetaminophen 325 Mg Tablet) 650 mg PO Q6HP PRN; Protocol PRN Reason: Per Pain Protocol/Fever > 101 Albuterol/Ipratropium (Ipratropium/Albuterol 3 Ml Ampul.Neb) 3 ml NEB Q4HRT PRN PRN Reason: Wheezing Last Admin: 10/13/21 03:54 Dose: 3 ml Documented by: Albuterol/Ipratropium (Ipratropium/Albuterol 3 Ml Ampul.Neb) 3 ml NEB ONCE PRN PRN Reason: Shortness Of Breath Docusate Sodium (Docusate Sodium 100 Mg Capsule) 100 mg PO BID [facility] Last Admin: 10/12/21 21:29 Dose: 100 mg Documented by: Donepezil HCl (Donepezil 10 Mg Tablet) 5 mg PO [facility] Last Admin: 10/12/21 21:30 Dose: 5 mg Documented by: Ferrous Sulfate (Ferrous Sulfate 325 Mg Tablet) 325 mg PO [facility] Last Admin: 10/13/21 07:57 Dose: 325 mg Documented by: Gabapentin (Gabapentin 100 Mg Capsule) 100 mg PO BID [facility] Last Admin: 10/12/21 21:29 Dose: 100 mg Documented by: Guaifenesin (Guaifenesin/Dextromethorphan Oral Elise) 10 ml PO Q4HP PRN PRN Reason: Cough Heparin Sodium (Porcine) (Heparin 5,000 Unit/Ml Vial) 5,000 unit SQ Q12 [facility] Last Admin: 10/12/21 21:30 Dose: 5,000 unit Documented by: Hydralazine HCl (Hydralazine 20 Mg/Ml Vial) 10 mg IV Q4-6HP PRN PRN Reason: Hypertension Sodium Chloride (Sodium Chloride 0.9%) 1,000 mls @ 100 mls/hr IV .Q10H [facility] Last Admin: 10/13/21 06:27 Dose: Not Given Documented by: Sodium Chloride (Sodium Chloride 0.9%) 1,000 mls @ 0 mls/hr IV .Q0M [facility] Piperacillin Sod/Tazobactam (Sod 2.25 gm/ Dextrose) 50 mls @ 100 mls/hr IV Q8H [facility]; Protocol Last Infusion: 10/13/21 08:36 Dose: Infused Documented by: Iron Carb/Multivit/Leonore/Folic Acid (Multivit,Ther Iron,Ca,Fa & Min 1 Tablet) 1 tab PO DAILY [facility] Last Admin: 10/12/21 09:35 Dose: 1 tab Documented by: Levothyroxine Sodium (Levothyroxine 50 Mcg Tablet) 50 mcg PO QDAY [facility] Last Admin: 10/12/21 09:35 Dose: 50 mcg Documented by: Loperamide HCl (Loperamide 2 Mg Capsule) 2 mg PO Q6H PRN PRN Reason: Diarrhea Memantine (Memantine 10 Mg Tablet) 10 mg PO BID [facility] Last Admin: 10/12/21 21:29 Dose: 10 mg Documented by: Morphine Sulfate (Morphine 4 Mg/Ml Vial) 4 mg IV Q4HP PRN; Protocol PRN Reason: Per Pain Protocol Last Admin: 10/12/21 17:47 Dose: 4 mg Documented by: Ondansetron HCl (Ondansetron 4 Mg/2 Ml Vial) 4 mg IV Q6HP PRN PRN Reason: Nausea And Vomiting Oxycodone HCl (Oxycodone Hcl 5 Mg Tablet) 5 mg PO Q6HP PRN; Protocol PRN Reason: Per Pain Protocol Last Admin: 10/12/21 19:14 Dose: 5 mg Documented by: Lovastatin 20 Mg (Tablet) 1 dose PO QPM [facility] Last Admin: 10/12/21 21:28 Dose: Not Given Documented by: Senna (Sennosides 1 Tablet) 2 tab PO HS [facility] Last Admin: 10/12/21 21:28 Dose: Not Given Documented by: Sodium Chloride (0.9 % Sodium Chloride 10 Ml Syringe) 10 ml IV Q8 [facility] Last Admin: 10/13/21 05:28 Dose: Not Given Documented by: Tramadol HCl (Tramadol 50 Mg Tablet) 50 mg PO Q6HP PRN PRN Reason: Pain Trazodone HCl (Trazodone Hcl 50 Mg Tablet) 25 mg PO HSP PRN PRN Reason: Insomnia Triamcinolone Acetonide (Triamcinolone Cream 0.1% 15g 1 Dose Tube) 1 dose TOPICAL BID [facility] Last Admin: 10/12/21 21:27 Dose: Not Given Documented by: Vancomycin HCl (Vancomycin Per Pharmacy) 1 order IV UD [facility] Last Nephrology Office note by Dr Figueroa: Since last visit on : Torsemide increased to 40 mg twice daily for uncontrolled edema and hypertension; Ibuprofen discontinued for chronic kidney disease stage 4 on 07/19/21. Labs on 08/14/21: Serum sodium 137, potassium 3.6, CO2 29, creatinine 1.5, eGFR 31, calcium 9.5, magnesium 2.0. Renal US on 08/28/17: Abnormal kidneys bilaterally. No interval change since 05/11/2016. Cortical irregularity in both kidneys consistent with multiple infarctions. There are bilateral cysts. Renal cortical parenchyma is echogenic consistent with medical renal disease No hydronephrosis. No solid mass. Renal US on 05/11/16: Mildly echogenic renal parenchyma compatible medical renal disease. Scattered simple cysts both kidneys ranging up to 2.4 cm inferior pole the right kidney. Scattered small infarcts in the renal parenchyma bilaterally. Greater than 50% stenosis of the proximal right renal artery. Greater than 60% stenosis of the proximal main left renal artery. There is also a 50% stenosis of the accessory left renal artery. Suggest: Renal MRA to confirm the stenoses and anatomically define the location, IF the patient would be a candidate for stenting or angioplasty. Impression: ARF on CKD 4 Too dry => Pre-renal azotemia Doubt Zosyn related AIN as no peripheral eosinophilia but would minimize or stop ABX SREEDHAR Chest PT for LLL atelectasis Avoid NSAIDS, RAASI or overdiuresis Addendum: Called by Hospital medicine physician who reported that after a discussion with the son, no further care short of comfort only will be undertaken. In that case you may prescribe NSAIDs as needed for pain control. Will notify Dr Figueroa that no further Nephrology services will be needed. cc:: CC: Kevin Mcdaniels MD Review of Systems All systems: reviewed and no additional remarkable complaints except as stated PFSH PFSH All Active Problems (Updated 10/13/21 @ 08:33 by Kevin Mcdaniels MD) Osteopenia (Chronic) Hypothyroidism (Chronic) Hyperlipidemia (Chronic) Hypertension (Chronic) Alzheimers disease (Chronic) Encounter for long-term (current) use of other medications (Chronic) Impaired fasting glucose (Chronic) Mitral regurgitation (Chronic) Chronic back pain (Chronic) Personal history of malignant neoplasm of breast (Chronic) Generalized osteoarthritis of multiple sites (Chronic) Deterioration in renal function (Chronic) Osteoarthrosis (Chronic) Renal artery stenosis (Chronic) Vitamin D deficiency (Chronic) Localized edema due to fluid overload (Chronic) Metabolic acidosis (Chronic) Stasis dermatitis of both legs (Chronic) CKD (chronic kidney disease) stage 4, GFR 15-29 ml/min (Chronic) 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 (Chronic) Closed pelvic fracture (Acute) Acute kidney failure (Acute) Stage 2 acute kidney injury (Acute) Alzheimer's dementia (Acute) CHF (congestive heart failure), NYHA class III (Acute) HCAP (healthcare-associated pneumonia) (Acute) Medical History Alzheimers disease Chronic back pain Deterioration in renal function Encounter for long-term (current) use of other medications Generalized osteoarthritis of multiple sites Hyperlipidemia Hypertension Hypothyroidism Impaired fasting glucose Mitral regurgitation Osteoarthrosis Osteopenia Personal history of malignant neoplasm of breast Vitamin D deficiency Surgical History History of colonoscopy (06/10/08) History of hammer toe correction History of hernia repair (04/22/12) History of lumpectomy of left breast History of vein stripping Family History Mother Hypertension Sister Hypertension Social History marital status: frequency: 5-6 times per week alcohol intake frequency: does not drink substance use type: does not use MEDS/ALLERGIES Home Medications and Allergies Home Medications Medication Instructions Recorded Confirmed Type diltiazem HCl 360 mg capsule,24 360 mg PO QDAY 04/05/16 10/10/21 History hr,extended release donepezil 5 mg tablet 5 mg PO QHS 04/05/16 10/10/21 History levothyroxine 50 mcg tablet 50 mcg PO QDAY tab 04/05/16 10/10/21 History (Synthroid) multivitamin,[id number] 1 tab PO QDAY 04/06/16 10/10/21 History (Complete Multivitamin) ferrous sulfate 325 mg (65 mg 325 mg PO QDAY #30 cap 11/07/16 10/10/21 Rx iron) capsule,extended release memantine 10 mg tablet (Namenda) 10 mg PO BID tab 05/02/17 10/10/21 History acetaminophen 500 mg tablet 1,000 mg PO TID tab 12/31/18 10/10/21 History lovastatin 40 mg tablet 20 mg PO QPM tab 09/09/19 10/10/21 History loperamide 2 mg capsule 2 mg PO Q6H PRN 12/01/20 10/10/21 History (Anti-Diarrheal (loperamide)) losartan 100 mg tablet 100 mg PO QDAY #90 tab 03/28/21 10/10/21 Rx torsemide 20 mg tablet 40 mg PO BID #360 tab 07/19/21 10/10/21 Rx ciprofloxacin HCl 500 mg tablet 500 mg PO BID 10/10/21 10/10/21 History gabapentin 100 mg capsule 100 mg PO BID 10/10/21 10/10/21 History tramadol 50 mg tablet 50 mg PO Q6H PRN 10/10/21 10/10/21 History triamcinolone acetonide 0.1 % 1 applic TOPICAL BID 10/10/21 10/10/21 History topical cream Allergies Allergy/AdvReac Type Severity Reaction Status Date / Time alendronate sodium Allergy Severe Critical Verified 08/21/21 09:45 [From Fosamax] amlodipine [From Norvasc] Allergy Severe Critical Verified 08/21/21 09:45 ezetimibe [From Vytorin] Allergy Severe Critical Verified 08/21/21 09:45 fluvastatin [From Lescol] Allergy Severe Critical Verified 08/21/21 09:45 metoprolol [From Toprol XL] Allergy Severe Critical Verified 08/21/21 09:45 risedronate sodium Allergy Severe Critical Verified 08/21/21 09:45 [From Actonel] simvastatin [From Vytorin] Allergy Severe Critical Verified 08/21/21 09:45 Sulfa (Sulfonamide Allergy Severe Critical Verified 08/21/21 09:45 Antibiotics) lisinopril Allergy Intermediate Moderate Verified 08/21/21 09:45 Penicillins Allergy Mild Unknown Verified 08/21/21 09:45 Physical Examination Vital Signs Vital signs: Temp Pulse Resp BP Pulse Ox 36.6 C 67 19 95/48 85 L 10/13/21 07:14 10/13/21 07:14 10/13/21 07:14 10/13/21 07:14 10/13/21 08:00 No exam performed due to cancellation of consult and institution of comfort measures only. Results Lab Results Result Diagrams: 10/13/21 00:59 10/13/21 05:37 Lab results: Most recent lab results Calcium 8.1 mg/dL (8.6-10.4) L 10/13/21 05:37 Phosphorus 8.2 mg/dL (2.5-4.5) H* 10/13/21 05:37 Magnesium 2.4 mg/dL (1.6-2.5) 10/13/21 05:37 A/P Narrative A/P Narrative: 1. ARF due to pre-renal azotemia > ATN >>> acute interstitial nephritis 2. Acute hypoxic and hypercapnic respiratory failure 3. Family decision for comfort measures due age, chronic morbidities and acute medical issues. Patient not seen. Case discussed x 2 with primary team and consult canceled Time Spent With Patient Time: Total time spent is greater than 50% in coordination of care (as documented) at patient's floor/unit and/or counseling patient: Total time spent with greater than 50% in coordination of care (as documented) at patient's floor/unit and/or counseling patient:: less than 15 minutes
[2021-10-13] MEDS: HEPARIN 5,000 UNIT/ML VIAL SQ SCH (10:29)
[2021-10-13] MEDS: morphine 4 MG/ML VIAL IV PRN (10:29)
[2021-10-13] MEDS: GABAPENTIN 100 MG CAPSULE PO SCH (10:30)
[2021-10-13] MEDS: LEVOTHYROXINE 50 MCG TABLET PO SCH (10:30)
[2021-10-13] MEDS: TRIAMCINOLONE CREAM 0.1% 15G 1 DOSE TUBE TOPICAL SCH (10:30)
[2021-10-13] MEDS: DOCUSATE SODIUM 100 MG CAPSULE PO SCH ×2 (10:30→10:54)
[2021-10-13] MEDS: MULTIVIT,THER IRON,CA,FA & MIN 1 TABLET PO SCH (10:40)
[2021-10-13] MEDS: MEMANTINE 10 MG TABLET PO SCH (10:40)
[2021-10-13] MEDS: oxyCODONE HCL 5 MG TABLET PO PRN (10:42)
[2021-10-13] MEDS ORDERED: HYDROmorphone 1 MG/ML SYRINGE IV PRN (10:49)
[2021-10-13] MEDS ORDERED: 0.9 % SODIUM CHLORIDE 10 ML SYRINGE IV SCH (14:00)
--- NOTE | 2021-10-13 16:10 | Death Note ---
Discharge Sum: Prov Provider Patient information: Note initiated : 10/13/21 at 4:07 pm Service Date, if different from initiated Date: [] Patient: Yamileth Roach 86 y/o F admitted on 10/10/21 for fall. Chief Complaint: [] Primary care physician: Martina Henao Admitting clinician: Kevin Mcdaniels Consults: 10/10/21 Consult to Physician [CONS] Stat Comment: Consulting Provider: Kevin Mcdaniels Reason For Exam: Physician to Consult 10/13/21 08:29 Consult to Physician [CONS] Routine Comment: acute kidney injury on CKD Consulting Provider: Geovanni Galloway Reason For Exam: Physician to Consult Pronouncing clinician: Ariella aVle Discharge Sum: Diag PCOD Cause of : Pneumonia Contributing Factors (1) Closed pelvic fracture: (2) Stage 2 acute kidney injury: (3) CKD (chronic kidney disease) stage 4, GFR 15-29 ml/min: (4) 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: (5) Hyperlipidemia: (6) Hypothyroidism: (7) Alzheimer's dementia: (8) CHF (congestive heart failure), NYHA class III: (9) HCAP (healthcare-associated pneumonia): Discharge Sum: Summary Date and Time Date of admission: 10/10/21 16:38 Date of : 10/13/21 Time of : 15:33 Summary Details: The patient was an 86-year-old female who presented after a ground-level fall, was found to have comminuted minimally displaced fracture of the posterior left ilium. She was admitted and treated, also had hypoxic respiratory failure requiring supplemental oxygen with initially clear x-ray. She also develped acute kidney injury on CKD IV. She slowly declined during hospitalization had more progressive oxygen requirements and new upper lobe infiltrates. She was started on broad spectrum antibiotics, but after discussion with her son, decision was made to transition to comfort care. She later that same day on 10/13/2021 at 1533 hrs. Course by day 10/10: Ms. Roach is a 86 year old F history of Alzheimer's Dementia, essential HTN, mixed dyslipidemia, CKD IV, hypothyroidism, p/w fall. She is a assisted living facility/memory care facility resident. Yesterday when she was trying to get up from bed she fell onto the ground. She denies any chest pain or palpitation. She denies any headache. She denies any LOC. She was sent to our ER by EMS on 10/08 for further evaluation. She is c/o aching pain of her left hip, 5/10, non radiating, constant at rest, and 10/10 when she tries to move her left leg. She was also being placed on 4L/min supplemental oxygen initially, currently at 2L/min. Labs significant for elevated serum Cr level initially at 3.3 with a baseline of 1.5. BNP 760. CXR showing signs of mild CHF. Head CT w/o contrast no signs of acute intracranial pathologies. CT pelvis showing acute oblique, comminuted, minimally displaced fracture of the posterior left ilium. 10/11: On 2L/min oxygen. c/o 5/10 pain of her left hip. Denies SOB or chest pain. Denies fever or chills or sweating. Pending physical therapy occupational therapy evaluation. 10/12: On 2L/min oxygen. Serum Cr level 1.5-->2.8. Patient is currently sleeping. Otherwise, there was no other major overnight events. 10/13: Overnight patient's oxygen requirement went up, now on 7L/min and about to go up to nonrebreather oxygen. Repeat CXR earlier this morning showing left basal atelectasis and left upper lobe infiltrates. Vancomycin and Zosyn were started. Kidney functions worsening. Normal saline started on 10/12. Subjective not obtained due to clinical situations. After discussions with her son by Dr. Mcdaniels (please see today's progress note), patient was transitioned to comfort care. Additional Data Attending physician: Ariella Vale MD
--- NOTE | 2021-10-16 07:22 | EKG ---
[facility] Test Date: 2021-10-13 Pat Name: Yamileth Roach Department: [facility] Room: 114 Gender: Female Assistant Portfolio Manager: : [id number] Requested By: Kevin Mcdaniels Order Number: [id number] Reading MD: Colton Dos Santos M.D. Measurements Intervals Conrad Rate: 65 P: 117 ND: 196 QRS: 95 QRSD: 103 T: 47 QT: 417 QTc: 434 Interpretive Statements Sinus rhythm Ventricular premature complex Borderline T abnormalities, anterior leads Electronically Signed On 10-16-2021 7:22:46 PST by Colton Dos Santos M.D. /[id number]/[email or web address]/[id number]
== END 2021-10-13 16:39 | disposition expired | DRG 535 ==
LOC: ED 13:22 → MEDSUR 10-10 16:43 → ICU 10-13 09:10
PROVIDERS: ADMIT Internal Medicine; ATTEND Internal Medicine